=== PATIENT | female | born 1935 | race Caucasian/White ===

== ENCOUNTER 2016-11-24 12:06 | Emergency (ER) | payer OTHER ==
[~2016-11-24 12:06] MED LIST: ASPI81TA82 PO; CALCCHW25 PO; FISH100020 PO; GLUC250C5 PO; HYDR-2768 PO; LEVO50TA4 PO; LEVOPOW PO; LISI10 PO; METH4TAB6 PO; Meclizine Hcl PO; NORV5TAB PO; OMEP20TA39 PO; SIMV40TA OR; VITACAP31 PO
[2016-11-24 12:10] VITALS: BP 99/79; PULSE 66; RESP 20; O2SAT 96
[2016-11-24] MEDS ORDERED: SODIUM CHLOR 0.9% 1000 ML INJ 1,000 ML IV SCH (12:32)
[2016-11-24] MEDS ORDERED: SODIUM CHLORIDE 0.9% FLUSH 5 ML FLUSH IVF PRN (12:45)
[2016-11-24] MEDS ORDERED: MORPHINE SULFATE 4 MG/ML INJ IV ONE (12:45)
[2016-11-24] MEDS ORDERED: ceFAZolin INJ 1,000 MG in ceFAZolin 2 GM PREMIX 50 ML IV ONE (12:45)
[2016-11-24] MEDS ORDERED: ONDANSETRON HCL 4 MG/2 ML VIAL IVP ONE (12:45)
--- NOTE | 2016-11-24 12:46 | PD ---
HPI . Bilateral hand injuries Chief Complaint: Injury Time Seen by Provider: 12:27 Travel History International Travel<30 days: No Contact w/Intl Traveler<30days: No Traveled to known affect area: No History of Present Illness HPI History is obtained from the patient and her . They are bickering. The patient was reportedly using a table saw and inadvertently cut both hands. The was preparing to bring her to the hospital for evaluation of the injuries when she passed out and landed flat on her face. The patient does state that her tetanus is up-to-date. PFSH Past Medical History Arthritis: Yes Cancer: No Cardiovascular Problems: No High Cholesterol: Yes Diminished Hearing: No GERD: Yes Genitourinary: No Immune Disorder: No Implanted Vascular Access Dvce: Yes Musculoskeletal: Yes Neurologic: No Psychiatric: No Reproductive: No Respiratory: No Thyroid Disease: Yes (HYPO) Tetanus Vaccination: < 5 Years Influenza Vaccination: No ?: Not Past Surgical History Eye Surgery: Yes (aimee cataract removal) Joint Replacement: Yes (BILATERAL knee replaced.) Other Surgery: Yes (Aimee carpal tunnel) Social History Alcohol Use: Yes (OCC) Tobacco Use: No Substance Use: No Allergies-Medications (Allergen,Severity, Reaction): Coded Allergies: Tetracyclines (Verified Allergy, Severe, 06/04/14) Reported Meds & Prescriptions Reported Meds & Active Scripts Active Norvasc (Amlodipine Besylate) 5 Mg Tab 1 Tab PO DAILY 30 Days TAKE AT NOON Hm Omeprazole (Omeprazole) 20 Mg Tab 20 Mg PO BID 30 Days Medrol 4 Mg Tab (Methylprednisolone) 4 Mg Tab 8 Mg PO BID 30 Days TAKE WITH FOOD [Meclizine Hcl] 25 MG Tab 25 Mg PO Q6 30 Days Prinivil 10 Mg Tab (Lisinopril) 10 Mg Tab 10 Mg PO Q12 30 Days Reported Vitamin C & E (Vitamins C & E) Cap 1 Cap PO DAILY Fish Oil ([place]-3 Fatty Acids) 1,000 Mg Cap 1,000 Mg PO DAILY Glucosamine Chondroitin (Glucosamine-Chondroitin) 1 Cap Cap 1 Cap PO DAILY Calcium + D (Calcium Carbonate/Cholecalciferol) Chw 1 Tab PO DAILY Aspir-81 (Aspirin) 81 Mg Tab 81 Mg PO DAILY Levothyroxine 50 mcg (Levothyroxine Sodium) 50 Mcg Tab 1 Tab PO DAILY Hctz (Hydrochlorothiazide) 25 Mg Tab 25 Mg PO DAILY Simvastatin 40 Mg Tab 40 Mg OR HS Levothyroxine Sodium (Levothyroxine Sodium (Bulk)) Pow 0.75 Mcg PO DAILY Review of Systems Except as stated in HPI: all other systems reviewed are Neg Eyes: No: Blurred Vision HENT: Positive: Lightheadedness, Other (her teeth do not feel like they are fitting together normally. She is complaining that the upper central incisors seem to be pushed back.) Cardiovascular: Positive: Syncope, No: Chest Pain or Discomfort Respiratory: No: Shortness of Breath Skin: Positive Other (multiple hand lacerations. Facial abrasions.) Neurologic: Positive: Weakness, Dizziness, Syncope, No: Focal Abnormalities Physical Exam Narrative GENERAL: This is a healthy-appearing older woman with abrasions to her face. SKIN: Warm and dry. Facial abrasions. Lacerations to both hands. HEAD: Normocephalic. She has some tenderness across the bridge of the nose but no crepitus or deformity noted. EYES: Pupils equal and round. ENT: No nasal bleeding or discharge. Mucous membranes pink and moist. Her teeth seem to be intact. The jaw is nontender and she is able to move her jaw without any pain. NECK: Trachea midline. Neck is nontender. Full range of motion without pain. CARDIOVASCULAR: Regular rate and rhythm. Heart sounds are normal. RESPIRATORY: No accessory muscle use. Lungs are clear with full air movement throughout. GASTROINTESTINAL: Abdomen soft, non-tender, nondistended. MUSCULOSKELETAL: She has lacerations on both hands. She has lacerations involving the tips of many fingers. NEUROLOGICAL: Awake and alert. No obvious cranial nerve deficits. Motor grossly within normal limits. Normal speech. PSYCHIATRIC: Appropriate mood and affect; insight and judgment normal. Data Data Last Documented VS Vital Signs Date Time Temp Pulse Resp B/P Pulse Ox O2 Delivery O2 Flow Rate FiO2 11/24/16 12:55 177/75 11/24/16 12:10 66 20 96 Orders Basic Metabolic Panel (Bmp) (11/24/16 12:32) Complete Blood Count With Diff (11/24/16 12:32) Ct Brain W/O Iv Contrast(Rout) (11/24/16 12:32) Ct Facial Bones W/O Iv Cont (11/24/16 12:32) Electrocardiogram (11/24/16 12:32) Iv Access Insert/Monitor (11/24/16 12:32) Morphine Inj (Morphine Inj) (11/24/16 12:45) Ondansetron Inj (Zofran Inj) (11/24/16 12:45) Sodium Chlor 0.9% 1000 Ml Inj (Ns 1000 M (11/24/16 12:32) Sodium Chloride 0.9% Flush (Ns Flush) (11/24/16 12:45) Hand, Complete ([id number]) (11/24/16 12:32) Hand, Complete ([id number]) (11/24/16 12:32) Shoulder, Complete (>2vws) (11/24/16 12:48) Cefazolin Inj (Ancef Inj) (11/24/16 13:15) Troponin I (11/24/16 13:37) Bupivacaine Pf 0.5% Inj (Marcaine Pf 0.5 (11/24/16 13:45) Lidocaine 1% Inj (50 Ml) (Xylocaine 1% I (11/24/16 13:45) Labs Laboratory Tests Test 11/24/16 12:20 White Blood Count 11.6 TH/MM3 Red Blood Count 3.97 MIL/MM3 Hemoglobin 12.7 GM/DL Hematocrit 36.6 % Mean Corpuscular Volume 92.2 FL Mean Corpuscular Hemoglobin 31.9 PG Mean Corpuscular Hemoglobin 34.6 % Concent Red Cell Distribution Width 13.1 % Platelet Count 321 TH/MM3 Mean Platelet Volume 7.8 FL Neutrophils (%) (Auto) 80.6 % Lymphocytes (%) (Auto) 14.3 % Monocytes (%) (Auto) 4.7 % Eosinophils (%) (Auto) 0.3 % Basophils (%) (Auto) 0.1 % Neutrophils # (Auto) 9.4 TH/MM3 Lymphocytes # (Auto) 1.7 TH/MM3 Monocytes # (Auto) 0.5 TH/MM3 Eosinophils # (Auto) 0.0 TH/MM3 Basophils # (Auto) 0.0 TH/MM3 CBC Comment DIFF FINAL Differential Comment Sodium Level 137 MEQ/L Potassium Level 3.9 MEQ/L Chloride Level 97 MEQ/L Carbon Dioxide Level 27.8 MEQ/L Anion Gap 12 MEQ/L Blood Urea Nitrogen 22 MG/DL Creatinine 0.99 MG/DL Estimat Glomerular Filtration 54 ML/MIN Rate Random Glucose 107 MG/DL Calcium Level 8.9 MG/DL Troponin I LESS THAN 0.02 NG/ML MDM Medical Decision Making Medical Screen Exam Complete: Yes Emergency Medical Condition: Yes Interpretation(s) EKG shows a normal sinus rhythm with no acute ischemic change. Differential Diagnosis My differential diagnosis of syncope includes but is not limited to cardiac arrhythmia, hypovolemia, anemia, neurological catastrophe, vasovagal response. Differential diagnosis of extremity trauma includes but is not limited to fracture, sprain or strain, dislocation, contusion. Narrative Course Patient presents for the evaluation of 2 problems. The first is lacerations both hands from a table saw. The second is a syncopal event that occurred following the injury. I am seeing the patient with IRISH Mcgowan who will take care of her lacerations. The patient may require referral to a hand surgeon. CBC has an H&H of 12.7 and 36.6. Chemistries are unremarkable with the exception of an elevated BUN/creatinine of 22/0.99. Troponin is negative. All plain films have been independently viewed by me. Pertinent finding is that she has fractures of the distal phalanges of the index and middle fingers of the right hand. CT of her head and face is negative. Diagnosis Primary Impression: Fracture of phalanx of right index finger Qualified Code: S62.630B - Open displaced fracture of distal phalanx of right index finger, initial encounter Additional Impressions: Fracture of phalanx of right middle finger Qualified Code: S62.662B - Open nondisplaced fracture of distal phalanx of right middle finger, initial encounter Facial abrasion Qualified Code: S00.81XA - Facial abrasion, initial encounter Vasovagal syncope Referrals: Edi Trejo III, MD 2 days Patient Instructions: Finger Fracture (ED), General Instructions Additional Instructions: Keep the wounds clean and dressed for the next 2 days until you see the hand surgeon. Follow-up with the hand doctor in 2 days. Seek care sooner for redness, drainage, warmth, unusual pain. Med/Other Pt SpecificInfo: Prescription(s) given Scripts Oxycodone-Acetaminophen (Percocet)5-325 mg Tab1 Tab PO Q4H PRN (PAIN) #12 TAB Ref 0 Prov:Genie Kirby MD 11/24/16 Cephalexin (Keflex)500 Mg [id number] Mg PO Q8H #30 CAP Ref 0 Prov:Genie Kirby MD 11/24/16 Disposition: 01 DISCHARGE HOME Condition: Stable Genie Kirby MD Nov 24, 2016 12:46
[2016-11-24 12:55] VITALS: BP 177/75
[2016-11-24 12:55] LABS: AUTOMATED NEUTROPHIL # 9.4 TH/MM3 (1.8-7.7); BASOPHIL % 0.1 % (0.0-2.0); EOSINOPHIL % 0.3 % (0.0-4.0); HEMATOCRIT 36.6 % (35.0-46.0); HEMO FLAGS DIFF FINAL; LYMPH % 14.3 % (9.0-44.0); LYMPHOCYTE # 1.7 TH/MM3 (1.0-4.8); MEAN CELL VOLUME 92.2 FL (80.0-100.0); MEAN CORPUSCULAR HEMOGLOBIN 31.9 PG (27.0-34.0); MEAN CORPUSCULAR HGB CONC 34.6 % (32.0-36.0); MONO % 4.7 % (0.0-8.0); NEUT % 80.6 % (16.0-70.0); PLATELET COUNT 321 TH/MM3 (150-450); RED BLOOD COUNT 3.97 MIL/MM3 (4.00-5.30); RED CELL DISTRIBUTION WIDTH 13.1 % (11.6-17.2); WHITE BLOOD COUNT 11.6 TH/MM3 (4.0-11.0)
[2016-11-24 13:06] LABS: POTASSIUM 3.9 MEQ/L (3.5-5.1)
[2016-11-24 13:09] LABS: BICARBONATE 27.8 MEQ/L (21.0-32.0)
[2016-11-24] MEDS ORDERED: ceFAZolin 1,000 MG/NS 100 ML IV ONE ×2 (13:15)
--- NOTE | 2016-11-24 13:30 | RADHPO ---
EXAM DATE/TIME: 11/24/2016 12:54 [facility] COMPARISON: CHEST SINGLE AP, June 04, 2014, 6:41. INDICATIONS : Right shoulder pain from fall. MEDICAL HISTORY : None. SURGICAL HISTORY : None. ENCOUNTER: Initial ACUITY: 1 day PAIN SCORE: 10/10 LOCATION: Right shoulder. FINDINGS: Multiple view examination of the right shoulder demonstrates no evidence of fracture or dislocation. The glenohumeral and acromioclavicular joints are maintained. There is normal range of motion betwe en internal and external rotation. Bony mineralization is normal. CONCLUSION: No acute disease. Candace Jackson MD on November 24, 2016 at 13:29 Board Certified Radiologist. This report was verified electronically.
[2016-11-24] MEDS ORDERED: BUPIVACAINE HCL PF 0.5% 10 ML VIAL INFIL ONE (13:45)
[2016-11-24] MEDS ORDERED: LIDOCAINE HCL 1% 50 ML VIAL INFIL ONE (13:45)
--- NOTE | 2016-11-24 13:45 | RADHPO ---
EXAM DATE/TIME: 11/24/2016 13:21 [facility] COMPARISON: CT BRAIN W/O CONTRAST, June 04, 2014, 6:10. INDICATIONS : Syncope. Fall. Facial abrasion around mouth and nose. RADIATION DOSE: 64.29 CTDIvol (mGy) MEDICAL HISTORY : Hypothyroidism. SURGICAL HISTORY : Bilateral cataract surgery. ENCOUNTER: Initial ACUITY: 1 day PAIN SCALE: 8/10 LOCATION: cranial TECHNIQUE: Multiple contiguous axial images were obtained of the head. Using automated exposure control and adj ustment of the mA and/or kV according to patient size, radiation dose was kept as low as reasonably a chievable to obtain optimal diagnostic quality images. FINDINGS: CEREBRUM: The ventricles are normal for age. No evidence of midline shift, mass lesion, hemorrhage or acute in farction. No extra-axial fluid collections are seen. POSTERIOR FOSSA: The cerebellum and brainstem are intact. The 4th ventricle is midline. The cerebellopontine angle i s unremarkable. EXTRACRANIAL: The visualized portion of the orbits is intact. SKULL: The calvaria is intact. No evidence of skull fracture. CONCLUSION: No acute disease. Denny Trujillo MD on November 24, 2016 at 13:43 Board Certified Radiologist. This report was verified electronically.
--- NOTE | 2016-11-24 13:47 | RADHPO ---
EXAM DATE/TIME: 11/24/2016 13:05 [facility] COMPARISON: HAND RIGHT COMPLETE ([id number]), July 09, 2011, 16:03. INDICATIONS: Patient cut right hand with a table saw. MEDICAL HISTORY: None. SURGICAL HISTORY: Carpal tunnel. ENCOUNTER: Initial ACUITY: 1 day PAIN SCORE: 5/10 LOCATION: Right hand. FINDINGS: There is an acute comminuted fracture involving the right second distal phalanx. There is also acute fractures involving the right third distal phalanx in the region of the phalangeal tuft and at the b ase of the thumb involving the distal interphalangeal joint. There has been interval significant wor sening of arthritic changes involving the interphalangeal joints of the right hand as well as first c arpometacarpal joint compared to the previous examination in June 2011. CONCLUSION: 1. Acute comminuted fracture involving the right second distal phalanx and acute fractures involving the right third distal phalangeal tuft and base of the right third distal phalanx. 2. Interval worsening of arthritic changes involving the interphalangeal joints and the right first carpometacarpal joint compared to 07/09/11. The findings are suggestive of worsening osteoarthritis. Denny Trujillo MD on November 24, 2016 at 13:27 Board Certified Radiologist. This report was verified electronically.
--- NOTE | 2016-11-24 13:49 | RADHPO ---
EXAM DATE/TIME: 11/24/2016 13:08 [facility] COMPARISON: HAND LEFT COMPLETE ([id number]), July 09, 2011, 16:00. INDICATIONS: Patient cut left hand with a table saw. MEDICAL HISTORY: None. SURGICAL HISTORY: Carpal tunnel. ENCOUNTER: Initial ACUITY: 1 day PAIN SCORE: 5/10 LOCATION: Left hand. FINDINGS: There is no acute fracture or dislocation of the left hand. There has been interval worsening of the arthritic changes involving the interphalangeal joints and first carpometacarpal joint of the left h and consistent with worsening osteoarthritis. CONCLUSION: 1. No acute fracture or dislocation of the left hand. 2. Interval worsening arthritic changes involving the interphalangeal joints and first carpometacarp al joint of the left hand suggesting worsening osteoarthritis. Clinical correlation is recommended. Denny Trujillo MD on November 24, 2016 at 13:30 Board Certified Radiologist. This report was verified electronically.
--- NOTE | 2016-11-24 13:52 | RADHPO ---
EXAM DATE/TIME: 11/24/2016 13:21 [facility] COMPARISON: No previous studies available for comparison. INDICATIONS : Syncope. Fall. Facial abrasion around mouth and nose. RADIATION DOSE: 34.93 CTDIvol (mGy) MEDICAL HISTORY : Hypothyroidism. SURGICAL HISTORY : Bilateral cataract surgery. ENCOUNTER: Initial ACUITY: 1 day PAIN SCORE: 8/10 LOCATION: facial TECHNIQUE: Volumetric scanning of the facial bones was performed. Using automated exposure control and adjustme nt of the mA and/or kV according to patient size, radiation dose was kept as low as reasonably achiev able to obtain optimal diagnostic quality images. FINDINGS: ORBITS: The orbital and infraorbital osseous structures are intact. The retroconal structures have a normal configuration. No radiopaque foreign bodies are seen. NASAL BONE: The nasal bone and maxillary spine are intact ZYGOMATIC ARCHES: Symmetric without evidence of fracture. SINUSES: The maxillary, ethmoid and frontal sinuses are intact. No air-fluid levels seen. NASAL CAVITY: The nasal septum is intact and midline. Left-sided reed bullosa is noted. The lacrimal ducts are i ntact. SOFT TISSUES: No radiopaque foreign bodies seen. No soft-tissue swelling is seen. INTRACRANIAL: No intracranial air seen. CRIBIFORM PLATE: Grossly intact. CONCLUSION: 1. No acute facial bone fracture. 2. Left-sided reed bullosa. Denny Trujillo MD on November 24, 2016 at 13:49 Board Certified Radiologist. This report was verified electronically.
[2016-11-24] MEDS ORDERED: CEPH-460 PO (14:24)
[2016-11-24] MEDS ORDERED: PERC5TAB12 PO (14:24)
[2016-11-24] MEDS ORDERED: SIMV40TA PO (15:02)
[2016-11-24] MEDS ORDERED: LEVO50TA4 PO (15:02)
[2016-11-24] MEDS ORDERED: HYDR25TA5 PO (15:02)
--- NOTE | 2016-11-24 16:06 | PD ---
Physical Exam Time Seen by Provider: 15:00 Narrative I was asked by Dr. Kirby to repair a laceration on this patient. Please see her note for further details. Data Data Last Documented VS Vital Signs Date Time Temp Pulse Resp B/P Pulse Ox O2 Delivery O2 Flow Rate FiO2 11/24/16 12:55 177/75 11/24/16 12:10 66 20 96 Orders Basic Metabolic Panel (Bmp) (11/24/16 12:32) Complete Blood Count With Diff (11/24/16 12:32) Ct Brain W/O Iv Contrast(Rout) (11/24/16 12:32) Ct Facial Bones W/O Iv Cont (11/24/16 12:32) Electrocardiogram (11/24/16 12:32) Iv Access Insert/Monitor (11/24/16 12:32) Morphine Inj (Morphine Inj) (11/24/16 12:45) Ondansetron Inj (Zofran Inj) (11/24/16 12:45) Sodium Chlor 0.9% 1000 Ml Inj (Ns 1000 M (11/24/16 12:32) Sodium Chloride 0.9% Flush (Ns Flush) (11/24/16 12:45) Hand, Complete (Fiz2ovx) (11/24/16 12:32) Hand, Complete ([id number]) (11/24/16 12:32) Shoulder, Complete (>2vws) (11/24/16 12:48) Cefazolin Inj (Ancef Inj) (11/24/16 13:15) Troponin I (11/24/16 13:37) Bupivacaine Pf 0.5% Inj (Marcaine Pf 0.5 (11/24/16 13:45) Lidocaine 1% Inj (50 Ml) (Xylocaine 1% I (11/24/16 13:45) Labs Laboratory Tests Test 11/24/16 12:20 White Blood Count 11.6 TH/MM3 Red Blood Count 3.97 MIL/MM3 Hemoglobin 12.7 GM/DL Hematocrit 36.6 % Mean Corpuscular Volume 92.2 FL Mean Corpuscular Hemoglobin 31.9 PG Mean Corpuscular Hemoglobin 34.6 % Concent Red Cell Distribution Width 13.1 % Platelet Count 321 TH/MM3 Mean Platelet Volume 7.8 FL Neutrophils (%) (Auto) 80.6 % Lymphocytes (%) (Auto) 14.3 % Monocytes (%) (Auto) 4.7 % Eosinophils (%) (Auto) 0.3 % Basophils (%) (Auto) 0.1 % Neutrophils # (Auto) 9.4 TH/MM3 Lymphocytes # (Auto) 1.7 TH/MM3 Monocytes # (Auto) 0.5 TH/MM3 Eosinophils # (Auto) 0.0 TH/MM3 Basophils # (Auto) 0.0 TH/MM3 CBC Comment DIFF FINAL Differential Comment Sodium Level 137 MEQ/L Potassium Level 3.9 MEQ/L Chloride Level 97 MEQ/L Carbon Dioxide Level 27.8 MEQ/L Anion Gap 12 MEQ/L Blood Urea Nitrogen 22 MG/DL Creatinine 0.99 MG/DL Estimat Glomerular Filtration 54 ML/MIN Rate Random Glucose 107 MG/DL Calcium Level 8.9 MG/DL Troponin I LESS THAN 0.02 NG/ML MDM Medical Record Reviewed: Yes Supervised Visit with CATHERINE: Yes Procedures Procedure Narrative LACERATION LOCATION: Left interdigital web space of the first and second digit LENGTH: 3 cm NUMBER OF STITCHES/RADHA: 8 simple interrupted REPAIR: The area of the laceration was prepped with Betadine and sterilely draped. The laceration was infiltrated with 1% lidocaine. The wound was copiously irrigated and explored without evidence of foreign body, tendon injury or neurovascular injury. The wound was closed using 5-0 Prolene. This was a single layer repair. A sterile dressing was applied. The patient was advised to keep the dressing clean and dry. Patient tolerated the procedure well. LACERATION LOCATION: Right thumb pulp space LENGTH: 2 cm NUMBER OF STITCHES/RADHA: 4 simple interrupted, 2 buried REPAIR: The area of the laceration was prepped with Betadine and sterilely draped. Digital block of the thumb was performed using 1% lidocaine and 0.5% bupivacaine. The wound was copiously irrigated and explored without evidence of foreign body, tendon injury or neurovascular injury. The wound was closed using 5-0 Prolene and 5-0 Vicryl. This was a double layer repair. A sterile dressing was applied. The patient was advised to keep the dressing clean and dry. Patient tolerated the procedure well. Diagnosis Primary Impression: Fracture of phalanx of right index finger Qualified Code: S62.630B - Open displaced fracture of distal phalanx of right index finger, initial encounter Additional Impressions: Fracture of phalanx of right middle finger Qualified Code: S62.662B - Open nondisplaced fracture of distal phalanx of right middle finger, initial encounter Facial abrasion Qualified Code: S00.81XA - Facial abrasion, initial encounter Vasovagal syncope Referrals: Edi Trejo III, MD 2 days Patient Instructions: General Instructions, Finger Fracture (ED) Departure Forms: Tests/Procedures Additional Instruction: Keep the wounds clean and dressed for the next 2 days until you see the hand surgeon. Follow-up with the hand doctor in 2 days. Seek care sooner for redness, drainage, warmth, unusual pain. Scripts Oxycodone-Acetaminophen (Percocet)5-325 mg Tab1 Tab PO Q4H PRN (PAIN) #12 TAB Ref 0 Prov:Genie Kirby MD 11/24/16 Cephalexin (Keflex)500 Mg [id number] Mg PO Q8H #30 CAP Ref 0 Prov:Genie Kirby MD 11/24/16 Disposition: 01 DISCHARGE HOME Condition: Stable Isela Carballo Nov 24, 2016 16:06
[2016-11-24 18:40] VITALS: BP 128/77
--- NOTE | 2016-11-25 22:46 | EKG ---
Date Performed: 11/24/2016 Time Performed: 13:28:10 PTAGE: 81 years EKG: Sinus rhythm rSr'(V1) - probable normal variant Normal ECG PREVIOUS TRACING : 06/04/2014 11.31 DOCTOR: Henrry Jara Interpretating Date/Time 11/25/2016 22:42:54
== END 2016-11-24 18:45 | disposition home or self-care (01) ==
LOC: PHEFT 12:06
DX: S62.630B Displaced fracture of distal phalanx of right index finger, initial encounter for open fracture (principal); S62.662B Nondisplaced fracture of distal phalanx of right middle finger, initial encounter for open fracture; S00.81XA Abrasion of other part of head, initial encounter; S61.412A Laceration without foreign body of left hand, initial encounter; S61.411A Laceration without foreign body of right hand, initial encounter; R55 Syncope and collapse; M19.90 Unspecified osteoarthritis, unspecified site; E78.00 Pure hypercholesterolemia, unspecified; K21.9 Gastro-esophageal reflux disease without esophagitis; E03.9 Hypothyroidism, unspecified; W29.8XXA Contact with other powered hand tools and household machinery, initial encounter; Y99.8 Other external cause status
CPT/HCPCS: 12002; 12041; 70450; 70486; 73030; 73130; 80048; 84484; 85025; 93005; 96365; 96375; 99284; J0690; J2270; J2405; J7030

== ENCOUNTER 2016-11-26 11:27 | Emergency (ER) | payer OTHER ==
[~2016-11-26] VITALS: Ht 147.3 cm; Wt 55.0 kg
[~2016-11-26 11:27] MED LIST changes: +CEPH-460 PO; +HYDR25TA5 PO; +PERC5TAB12 PO; +SIMV40TA PO
[2016-11-26 11:29] VITALS: BP 149/59; PULSE 60; RESP 18; TEMP 97.8; O2SAT 100
[2016-11-26] MEDS ORDERED: ACET325T PO (11:56)
[2016-11-26] MEDS ORDERED: MECL25CH CHEW (11:56)
[2016-11-26] MEDS ORDERED: LISI10TA PO (11:56)
--- NOTE | 2016-11-26 12:01 | PD ---
HPI Chief Complaint: Wound/Suture/Staple Re-Check Time Seen by Provider: 11:57 Travel History International Travel<30 days: No Contact w/Intl Traveler<30days: No Traveled to known affect area: No History of Present Illness HPI Patient is a 81-year-old female presenting to days after table saw injury to of hands. Further reports she had a laceration to the left thumb and second digit of the left hand and lacerations and fractures to the second and third distal phalanges of the right hand. Patient was given Ancef here and pressures for Keflex and pain medication. She states she still has aching and throbbing pain in her right hand but no worsening. She left the bandage is intact and is here because her her called her PCP and orthopedist and have not been able to get the referral to a hand specialist. She denies fever. PFSH Past Medical History Arthritis: Yes Cancer: No Cardiovascular Problems: No High Cholesterol: Yes Diminished Hearing: No GERD: Yes Genitourinary: No Hypertension: Yes Immune Disorder: No Implanted Vascular Access Dvce: Yes Medical other: Yes (vertigo) Musculoskeletal: Yes Neurologic: No Psychiatric: No Reproductive: No Respiratory: No Thyroid Disease: Yes (HYPO) Tetanus Vaccination: < 5 Years Influenza Vaccination: No ?: Not Past Surgical History Eye Surgery: Yes (saeid cataract sx) Joint Replacement: Yes (BILATERAL knee replaced) Other Surgery: Yes (Saeid carpal tunnel) Social History Alcohol Use: Yes (wine, occasionally) Tobacco Use: No (quit 1960s) Substance Use: No Allergies-Medications (Allergen,Severity, Reaction): Coded Allergies: Tetracyclines (Verified Allergy, Severe, 11/26/16) Reported Meds & Prescriptions Reported Meds & Active Scripts Active Percocet (Oxycodone-Acetaminophen) 5-325 mg Tab 1 Tab PO Q4H PRN Keflex (Cephalexin) 500 Mg Cap 500 Mg PO Q8H Reported Acetaminophen 325 Mg Tab 650 Mg PO Q4-6H PRN Meclizine (Meclizine HCl) 25 Mg Chew 25 Mg CHEW DAILY Lisinopril-Hctz 10-12.5 Mg Tab 1 Tab PO DAILY Levothyroxine (Levothyroxine Sodium) 50 Mcg Tab 75 Mcg PO DAILY Simvastatin 40 Mg Tab 40 Mg PO HS Review of Systems General / Constitutional: No: Fever, Chills Skin: Positive Other (see the history of present illness) Hematologic/Lymphatic: No: Lymph Node Enlargement Physical Exam Narrative GENERAL: Well-developed and well-nourished adult female in no acute distress. SKIN: Right hand has repaired lacerations to the distal aspect of the thumb through the fourth digit. Sutures are in place without dehiscence or signs of infection. Well-healing laceration to the webspace between the thumb and second digit of the left hand. No evidence of dehiscence or infection. Multiple well-healing abrasions to the face. Good turgor without tenting. HEAD: Normocephalic and atraumatic. EYES: PERRL bilaterally, 5mm. EOMI bilaterally. No injection or icterus present. No proptosis. Lids without edema or erythema. NECK: Supple, no midline tenderness, crepitus or step-offs. Trachea midline, no JVD. No cervical or facial lymphadenopathy. CARDIOVASCULAR: Regular rate and rhythm without murmurs, rubs, clicks or gallops. Radial pulses 2+ bilaterally. RESPIRATORY: Clear to auscultation bilaterally with symmetrical rise and fall, no distress or use of accessory muscles. MUSCULOSKELETAL: Distal avulsion and nailbed injuries to the second through fourth fingers of the right hand with sutures in place, no signs of infection or dehiscence. Second third digits are held in flexion distally but limited range of motion. No gait disturbances. Patient freely moving all four extremities spontaneously. Extremities without clubbing or cyanosis. NEUROLOGIC: CN II-XII grossly intact. Awake and alert. Motor grossly within normal limits. Normal speech. PSYCHIATRIC: Appropriate mood and affect; insight and judgment normal. Data Data Last Documented VS Vital Signs Date Time Temp Pulse Resp B/P Pulse Ox O2 Delivery O2 Flow Rate FiO2 11/26/16 11:29 97.8 60 18 149/59 100 MDM Medical Decision Making Medical Screen Exam Complete: Yes Emergency Medical Condition: Yes Differential Diagnosis Finger avulsion injury versus finger fracture versus wound dehiscence versus wound infection Narrative Course Patient is a 81-year-old female who is afebrile, nontoxic and has no systemic complaints presenting for follow-up from laceration, finger fractures and avulsion injuries from a table saw 2 days prior. She has been taking the Keflex. She has not seen anyone in follow-up because there is some confusion with the directions of her speaking with her primary or orthopedist rather than calling Dr. Trejo. There is no sign of infection and the sutures are all in place. Reduced range of motion secondary third digits of the right hand which have comminuted distal phalanx fractures. I spoke with Dr. Jaymie Arnold who recommended the patient see her today at her office at 3:30 PM. This was provided to the patient who is agreeable. The wounds were rewrapped and she was discharged to follow-up this afternoon.See discharge paperwork for further instructions. The plan was discussed with the patient who acknowledged their understanding and agreement. Reinforced the follow-up with primary care is critically important. Patient instructed on emergent conditions that should prompt return to ED. Diagnosis Primary Impression: Fracture of phalanx of right middle finger Qualified Code: S62.632D - Open displaced fracture of distal phalanx of right middle finger with routine healing, subsequent encounter Additional Impressions: Fracture of phalanx of right index finger Qualified Code: S62.630D - Open displaced fracture of distal phalanx of right index finger with routine healing, subsequent encounter Facial abrasion Qualified Code: S00.81XD - Facial abrasion, subsequent encounter Referrals: Jaymie Arnold MD Patient Instructions: General Instructions Additional Instructions: Follow-up with Dr. Jaymie Arnold today at 3:30 PM as discussed Return to the ED for any acute worsening of symptoms in the interim Disposition: 01 DISCHARGE HOME Condition: Stable Paulo Sevilla III Nov 26, 2016 12:01
== END 2016-11-26 13:24 | disposition home or self-care (01) ==
LOC: PHEFT 11:27
DX: S62.630D Displaced fracture of distal phalanx of right index finger, subsequent encounter for fracture with routine healing (principal); S62.662D Nondisplaced fracture of distal phalanx of right middle finger, subsequent encounter for fracture with routine healing; S00.81XD Abrasion of other part of head, subsequent encounter; I10 Essential (primary) hypertension; K21.9 Gastro-esophageal reflux disease without esophagitis; E03.9 Hypothyroidism, unspecified; E78.00 Pure hypercholesterolemia, unspecified; W29.8XXD Contact with other powered hand tools and household machinery, subsequent encounter
CPT/HCPCS: 99283

== ENCOUNTER 2017-01-22 04:44 | Observation (INO) | payer OTHER ==
[~2017-01-22] VITALS: Ht 147.3 cm; Wt 57.0 kg
[2017-01-22] VITALS (11 sets, daily range): BP systolic 118–162; BP diastolic 53–98; PULSE 58–67; RESP 16–20; TEMP 97–99.7; O2SAT 94–98
[~2017-01-22 04:44] MED LIST changes: +ACET325T PO; -ASPI81TA82 PO; -CALCCHW25 PO; -FISH100020 PO; -GLUC250C5 PO; -HYDR-2768 PO; -HYDR25TA5 PO; -LEVOPOW PO; -LISI10 PO; +LISI10TA PO; +MECL25CH CHEW; -METH4TAB6 PO; -Meclizine Hcl PO; -NORV5TAB PO; -OMEP20TA39 PO; -SIMV40TA OR; -VITACAP31 PO
[2017-01-22] MEDS ORDERED: OMEP20TA PO (05:08)
[2017-01-22] MEDS ORDERED: METH4TAB6 PO (05:09)
[2017-01-22] MEDS ORDERED: FLUT1SPR5 EACH NARE (05:10)
[2017-01-22] MEDS ORDERED: CIPR250T52 PO (05:10)
[2017-01-22] MEDS ORDERED: SODIUM CHLOR 0.9% 1000 ML INJ 1,000 ML IV ONE (05:12)
[2017-01-22] MEDS ORDERED: cefTRIAXone INJ 1,000 MG in SODIUM CHLORIDE 0.9% INJ 100 ML IV ONE (05:15)
[2017-01-22] MEDS ORDERED: SODIUM CHLORIDE 0.9% FLUSH 5 ML FLUSH IVF PRN ×2 (05:15→07:00)
--- NOTE | 2017-01-22 05:28 | PD ---
HPI Chief Complaint: General Weakness Time Seen by Provider: 05:12 Travel History International Travel<30 days: No Contact w/Intl Traveler<30days: No Traveled to known affect area: No History of Present Illness HPI 81-year-old female presents to the emergency department by EMS transportation for evaluation of generalized weakness and near syncopal/syncopal episode this morning just prior to arrival to the emergency department. Patient's spouse is at the bedside and along with the patient provides history. Patient is in the process of being evaluated for memory disturbance by her neurologist Dr. Zelaya with concern for dementia. Patient recently underwent MRI and EEG studies. Patient was also seen recently by her primary care provider for generalized weakness and was identified to have urinary tract infection 01/21/17 and was started on ciprofloxacin. Patient has taken a one-time dose of antibiotic. Patient reportedly had temperature elevation at the doctor' s office 100+ degrees Fahrenheit. reports that he was up out of bed with the patient who had to urinate and on her way to the bathroom patient became very weak and the reports she had loss of consciousness and the patient denies having loss of consciousness but reports generalized weakness. Patient's legs have been reportedly giving out on her. Patient did have an episode of vomiting at home. No report of headache no change in mentation visual disturbance earache sinus pressure drainage has had a sore throat for 2 days no neck pain or stiffness no chest pain or shortness of breath has had cough and congestion, no nausea poor appetite and 1 episode of vomiting prior to arrival to the emergency department no abdominal pain no diarrhea. No dysuria frequency or urgency no report of flank pain. As mentioned above the diagnosis of urinary tract infection. No recent skin rash joint pain or swelling. Patient with history of hypertension and dyslipidemia. Patient is not diabetic. Patient does have history of hypothyroidism. [facility] Past Medical History Narrative Medical Arthritis dyslipidemia hypertension hypothyroidism seasonal/vomiting allergies UTI memory disturbance/dementia bilateral knee replacement carpal tunnel repair alcohol use nursing notes reviewed Arthritis: Yes Cancer: No Cardiovascular Problems: No High Cholesterol: Yes Diminished Hearing: No GERD: Yes Genitourinary: No Hypertension: Yes Immune Disorder: No Implanted Vascular Access Dvce: Yes Musculoskeletal: Yes Neurologic: No Psychiatric: No Reproductive: No Respiratory: No Thyroid Disease: Yes (HYPO) ?: Not Past Surgical History Eye Surgery: Yes (aimee cataract sx) Joint Replacement: Yes (BILATERAL knee replaced) Other Surgery: Yes (Aimee carpal tunnel) Social History Alcohol Use: Yes (wine, occasionally) Tobacco Use: No (quit 1960s) Substance Use: No Allergies-Medications (Allergen,Severity, Reaction): Coded Allergies: Tetracyclines (Verified Allergy, Severe, 01/22/17) Reported Meds & Prescriptions Reported Meds & Active Scripts Active Reported Cipro (Ciprofloxacin HCl) 250 Mg Tab 250 Mg PO BID Flonase Nasal [place] (Fluticasone Nasal [place]) 50 Mcg/Act [place] 50 Mcg EACH NARE BID Methylprednisolone 4 Mg Tab 4 Mg PO DAILY Omeprazole 20 Mg Tab 20 Mg PO DAILY Meclizine (Meclizine HCl) 25 Mg Chew 25 Mg CHEW DAILY Lisinopril-Hctz 10-12.5 Mg Tab 1 Tab PO DAILY Levothyroxine (Levothyroxine Sodium) 50 Mcg Tab 75 Mcg PO DAILY Simvastatin 40 Mg Tab 40 Mg PO HS Review of Systems Except as stated in HPI: all other systems reviewed are Neg General / Constitutional: Positive: Fever (subjective), Chills Eyes: No: Visual changes HENT: Positive: Lightheadedness, Sore Throat, Congestion, No: Headaches Cardiovascular: Positive: Syncope (near syncope), No: Chest Pain or Discomfort , Palpitations, Diaphoresis Respiratory: Positive: Cough, No: Shortness of Breath, Wheezing Gastrointestinal: Positive: Vomiting (x1), No: Nausea, Diarrhea, Abdominal Pain Genitourinary: No: Dysuria, Flank Pain Musculoskeletal: Positive: Weakness, No: Myalgias, Arthralgias Neurologic: Positive: Weakness, Dizziness, Syncope (near syncope), No: Headache, Change in Mentation, Slurred Speech Psychiatric: No: Anxiety Endocrine: No: Heat Intolerance Hematologic/Lymphatic: No: Easy Bruising Physical Exam Narrative GENERAL: Well developed well-nourished female in no acute distress no respiratory distress SKIN: Warm and dry. HEAD: Atraumatic. Normocephalic. EYES: Pupils equal and round. Extra ocular muscles intact. No scleral icterus. No injection or drainage. ENT: No nasal bleeding or discharge. Mucous membranes pink and moist. Posterior pharynx no erythema or injection or exudate of change airway is patent. NECK: Trachea midline. No JVD. Supple no meningismus no nuchal rigidity. CARDIOVASCULAR: Regular rate and rhythm. RESPIRATORY: No accessory muscle use. Clear to auscultation. Breath sounds equal bilaterally. GASTROINTESTINAL: Abdomen soft, non-tender, nondistended. Hepatic and splenic margins not palpable. MUSCULOSKELETAL: Extremities without clubbing, cyanosis, or edema. No obvious deformities. Radial and dorsalis pedis pulses 2+ to palpation bilaterally. NEUROLOGICAL: Awake and alert. No obvious cranial nerve deficits. Motor grossly within normal limits. Five out of 5 muscle strength in the arms and legs. No limb ataxia. No pronator drift. Sensory exam intact. Normal speech. PSYCHIATRIC: Appropriate mood and affect; insight and judgment normal. Data Data Last Documented VS Vital Signs Date Time Temp Pulse Resp B/P Pulse Ox O2 Delivery O2 Flow Rate FiO2 01/22/17 06:18 59 132/56 98 Room Air 01/22/17 05:15 20 01/22/17 05:11 99.7 Orders Electrocardiogram (01/22/17 05:12) Complete Blood Count With Diff (01/22/17 05:12) Comprehensive Metabolic Panel (01/22/17 05:12) Magnesium (Mg) (01/22/17 05:12) Ckmb (Isoenzyme) Profile (01/22/17 05:12) Troponin I (01/22/17 05:12) Act Partial Throm Time (Ptt) (01/22/17 05:12) Prothrombin Time / Inr (Pt) (01/22/17 05:12) Urinalysis - C+S If Indicated (01/22/17 05:12) Chest, Single Ap (01/22/17 05:12) Ct Brain W/O Iv Contrast(Rout) (01/22/17 05:12) Blood Glucose (01/22/17 05:12) Ecg Monitoring (01/22/17 05:12) Iv Access Insert/Monitor (01/22/17 05:12) Oximetry (01/22/17 05:12) Sodium Chloride 0.9% Flush (Ns Flush) (01/22/17 05:15) Sodium Chlor 0.9% 1000 Ml Inj (Ns 1000 M (01/22/17 05:12) Ceftriaxone Inj (Rocephin Inj) (01/22/17 05:15) Blood Culture (01/22/17 05:12) Lactic Acid Sepsis Protocol (01/22/17 05:12) Influenzae A/B Antigen (01/22/17 05:28) Thyroid Stimulating Hormone (01/22/17 05:28) Potassium Chloride (Kcl) (01/22/17 06:30) Place In Observation (01/22/17 ) Vital Signs (Adult) Q4H (01/22/17 06:54) Circular Ripsaw Operator / Telemetry .CONTINUOUS (01/22/17 06:54) Intake + Output TIM.QSHIFT (01/22/17 06:54) Diet Heart Healthy (01/22/17 Breakfast) Sodium Chlor 0.9% 1000 Ml Inj (Ns 1000 M (01/22/17 06:54) Sodium Chloride 0.9% Flush (Ns Flush) (01/22/17 07:00) Sodium Chloride 0.9% Flush (Ns Flush) (01/22/17 09:00) Ondansetron Inj (Zofran Inj) (01/22/17 07:00) Bisacodyl Supp (Dulcolax Supp) (01/22/17 07:00) Comprehensive Metabolic Panel (01/23/17 06:00) Complete Blood Count With Diff (01/23/17 06:00) Scd Bilateral/Knee High TIM.BID (01/22/17 06:54) Chris Bilateral/Knee High TIM.QSHIFT (01/22/17 06:54) Acetaminophen (Tylenol) (01/22/17 07:00) Labs Laboratory Tests Test 01/22/17 05:30 White Blood Count 6.5 TH/MM3 Red Blood Count 3.73 MIL/MM3 Hemoglobin 11.6 GM/DL Hematocrit 34.5 % Mean Corpuscular Volume 92.4 FL Mean Corpuscular Hemoglobin 31.1 PG Mean Corpuscular Hemoglobin 33.7 % Concent Red Cell Distribution Width 12.4 % Platelet Count 198 TH/MM3 Mean Platelet Volume 8.4 FL Neutrophils (%) (Auto) 79.4 % Lymphocytes (%) (Auto) 9.3 % Monocytes (%) (Auto) 11.0 % Eosinophils (%) (Auto) 0.0 % Basophils (%) (Auto) 0.3 % Neutrophils # (Auto) 5.2 TH/MM3 Lymphocytes # (Auto) 0.6 TH/MM3 Monocytes # (Auto) 0.7 TH/MM3 Eosinophils # (Auto) 0.0 TH/MM3 Basophils # (Auto) 0.0 TH/MM3 CBC Comment DIFF FINAL Differential Comment Prothrombin Time 11.1 SEC Prothromb Time International 1.0 RATIO Ratio Activated Partial 25.3 SEC Thromboplast Time Sodium Level 129 MEQ/L Potassium Level 3.1 MEQ/L Chloride Level 90 MEQ/L Carbon Dioxide Level 29.5 MEQ/L Anion Gap 10 MEQ/L Blood Urea Nitrogen 13 MG/DL Creatinine 0.79 MG/DL Estimat Glomerular Filtration 70 ML/MIN Rate Random Glucose 109 MG/DL Lactic Acid Level 1.1 mmol/L Calcium Level 8.0 MG/DL Magnesium Level 1.8 MG/DL Total Bilirubin 0.4 MG/DL Aspartate Amino Transf 28 U/L (AST/SGOT) Alanine Aminotransferase 20 U/L (ALT/SGPT) Alkaline Phosphatase 47 U/L Total Creatine Kinase 95 U/L Troponin I LESS THAN 0.02 NG/ML Total Protein 6.7 GM/DL Albumin 3.2 GM/DL Thyroid Stimulating Hormone 0.679 uIU/ML [address] [place] [address] Medical Decision Making Medical Screen Exam Complete: Yes Emergency Medical Condition: Yes Medical Record Reviewed: Yes Interpretation(s) EKG: Sinus bradycardia rate [address] elevation or injury pattern change or ectopy noted Last Impressions Head CT 01/22/17511 Signed Impressions: Service Date/Time: Sunday, January 22, 2017 05:35 - CONCLUSION: Age- appropriate atrophy. No acute findings. Mane Plunkett MD Chest X-Ray 01/22/17511 Signed Impressions: Service Date/Time: Sunday, January 22, 2017 05:34 - CONCLUSION: The lungs are clear. Mane Plunkett MD CBC & BMP Diagram 01/22/17 05:30 Vital Signs Date Time Temp Pulse Resp B/P Pulse Ox O2 Delivery O2 Flow Rate FiO2 01/22/17 06:18 59 132/56 98 Room Air 01/22/17 05:23 94 Room Air 01/22/17 05:15 60 20 94 01/22/17 05:11 99.7 60 20 162/72 94 Lactic acid: 1.1, not elevated CK: 95, not elevated; troponin I: Less than 0.02, not elevated TSH: 0.679 within normal range Coagulation studies within normal range Differential Diagnosis Generalized weakness, sepsis, UTI, pneumonia, influenza, arrhythmia, electrolyte disturbance, ACS, AL, TIA, CVA, thyroid dysfunction; also to consider below suspicion for PE no chest pain no shortness of breath no tachycardia symptoms have been present with generalized weakness for several days patient's near-syncopal/syncopal episode occurred upon standing/up out of bed after sleeping to go the bathroom possible transient hypotension versus vasovagal etiology. Narrative Course IV access obtained specimens collected and sent for resulting Patient administered normal saline 1 L bolus and Rocephin 1 g IV piggyback as a presumptive antibiotic coverage for diagnosis of UTI yesterday after obtaining blood cultures CBC is automated differential total white cell count within normal limits however automated differential identifies a left shift 79% neutrophils EKG shows no acute injury pattern and cardiac enzymes first set are within normal range Patient shows normal range TSH with history of hypothyroidism CT brain noncontrast reveals no acute abnormality; chest x-ray reveals no lobar infiltrate effusion or vascular congestion or pneumothorax Urinalysis remains pending Patient's case discussed with on-call medicine physician for admission for syncope/near syncope with hyponatremia recent diagnosis of UTI as of yesterday by primary care provider's office with dose of Cipro and for generalized weakness. Per Dr. Martinez will admit as observation. Critical Care Narrative Aggregate critical care time was 40 minutes. Time to perform other separately billable procedures was not included in the critical care time. My time did not include minutes spent treating any other patients simultaneously or on activities that did not directly contribute to the patient's treatment. The services I provided to this patient were to treat and/or prevent clinically significant deterioration that could result in: Sepsis dysrhythmia coma I provided critical care services requiring my management, as noted below: Chart data review, documentation time, medication orders and management, vital sign assessments/reviewing monitor data, ordering and reviewing lab tests, ordering and interpreting/reviewing x-rays and diagnostic studies, care of the patient and discussion of the patient with the admitting physicians. Physician Communication Physician Communication discussed with Dr Martinez --[facility] service OBS admission Diagnosis Primary Impression: Syncope Qualified Code: R55 - Syncope, unspecified syncope type Additional Impressions: UTI (urinary tract infection) Hyponatremia Admitting Information Admitting Physician Requests: Observation Annie Hawkins MD Jan 22, 2017 05:28
[2017-01-22 05:48] LABS: AUTOMATED NEUTROPHIL # 5.2 TH/MM3 (1.8-7.7); BASOPHIL % 0.3 % (0.0-2.0); HEMATOCRIT 34.5 % (35.0-46.0); HEMO FLAGS DIFF FINAL; LYMPH % 9.3 % (9.0-44.0); LYMPHOCYTE # 0.6 TH/MM3 (1.0-4.8); MEAN CELL VOLUME 92.4 FL (80.0-100.0); MEAN CORPUSCULAR HEMOGLOBIN 31.1 PG (27.0-34.0); MEAN CORPUSCULAR HGB CONC 33.7 % (32.0-36.0); NEUT % 79.4 % (16.0-70.0); PLATELET COUNT 198 TH/MM3 (150-450); RED BLOOD COUNT 3.73 MIL/MM3 (4.00-5.30); RED CELL DISTRIBUTION WIDTH 12.4 % (11.6-17.2); WHITE BLOOD COUNT 6.5 TH/MM3 (4.0-11.0)
[2017-01-22 05:56] LABS: CHLORIDE 90 MEQ/L (98-107); SODIUM (NA) 129 MEQ/L (136-145)
[2017-01-22 05:58] LABS: POTASSIUM 3.1 MEQ/L (3.5-5.1)
[2017-01-22 06:00] LABS: ANION GAP 10 MEQ/L (5-15); BICARBONATE 29.5 MEQ/L (21.0-32.0); BLOOD UREA NITROGEN 13 MG/DL (7-18); MAGNESIUM 1.8 MG/DL (1.5-2.5)
[2017-01-22 06:01] LABS: APTT (PATIENT) 25.3 SEC (24.3-30.1); PROTHROMBIN TIME - PATIENT 11.1 SEC (9.8-11.6)
[2017-01-22 06:03] LABS: ALT (GPT) 20 U/L (10-53); AST (GOT) 28 U/L (15-37); GLOMERULAR FILTRATION RATE 70 ML/MIN (>89)
[2017-01-22 06:05] LABS: TOTAL BILIRUBIN ADULT 0.4 MG/DL (0.2-1.0)
[2017-01-22 06:06] LABS: ALKALINE PHOSPHATASE 47 U/L (45-117)
[2017-01-22 06:08] LABS: CREATINE KINASE 95 U/L (26-192)
--- NOTE | 2017-01-22 06:21 | RADHPO ---
EXAM DATE/TIME: 01/22/2017 05:35 [facility] COMPARISON: CT BRAIN W/O CONTRAST, November 24, 2016, 13:21. INDICATIONS : Dizziness. Weakness. Confusion. RADIATION DOSE: 56.87 CTDIvol (mGy) MEDICAL HISTORY : Hypertension. SURGICAL HISTORY : None. ENCOUNTER: Initial ACUITY: 1 day PAIN SCALE: 0/10 LOCATION: cranial TECHNIQUE: Multiple contiguous axial images were obtained of the head. Using automated exposure control and adj ustment of the mA and/or kV according to patient size, radiation dose was kept as low as reasonably a chievable to obtain optimal diagnostic quality images. FINDINGS: CEREBRUM: The ventricles are prominent, appropriate for age and similar to November 2016. No evidence of midlin e shift, mass lesion, hemorrhage or acute infarction. No extra-axial fluid collections are seen. POSTERIOR FOSSA: The cerebellum and brainstem are intact. The 4th ventricle is midline. The cerebellopontine angle i s unremarkable. EXTRACRANIAL: The visualized portion of the orbits is intact. SKULL: The calvaria is intact. No evidence of skull fracture. CONCLUSION: Age-appropriate atrophy. No acute findings. Mane Plunkett MD on January 22, 2017 at 6:16 Board Certified Radiologist. This report was verified electronically.
[2017-01-22] MEDS ORDERED: POTASSIUM CHLORIDE 20 MEQ CONTROLLED RELEASE TAB PO ONE (06:30)
--- NOTE | 2017-01-22 06:31 | RADHPO ---
EXAM DATE/TIME: 01/22/2017 05:34 [facility] COMPARISON: CHEST SINGLE AP, June 04, 2014, 6:41. INDICATIONS : Weakness, syncopal episode today MEDICAL HISTORY : Hypertension. SURGICAL HISTORY : None. ENCOUNTER: Initial ACUITY: 1 day PAIN SCORE: Non-responsive. LOCATION: Bilateral chest FINDINGS: A single view of the chest demonstrates the lungs to be symmetrically aerated without evidence of mas s, infiltrate or effusion. The cardiomediastinal contours are unremarkable. Osseous structures are intact. CONCLUSION: The lungs are clear. Mane Plunkett MD on January 22, 2017 at 6:29 Board Certified Radiologist. This report was verified electronically.
[2017-01-22] MEDS ORDERED: SODIUM CHLORIDE 0.9% FLUSH 5 ML FLUSH FLUSH PRN (07:00)
[2017-01-22] MEDS ORDERED: ONDANSETRON HCL 4 MG/2 ML VIAL IVP PRN (07:00)
[2017-01-22] MEDS ORDERED: BISACODYL 10 MG SUPP PR PRN (07:00)
[2017-01-22] MEDS ORDERED: ACETAMINOPHEN 325 MG TAB PO PRN ×2 (07:00→16:45)
[2017-01-22 07:05] LABS: BLOOD, URINE LARGE (NEG); GLUCOSE,URINE NEG (NEG); KETONE, URINE NEG (NEG); NITRITE,URINE NEG (NEG); PH, URINE 6.5 (5.0-8.5)
[2017-01-22 07:10] LABS: METHOD OF COLLECTION CLEAN CATCH; URINE COLOR YELLOW (YELLW/STRAW)
[2017-01-22 07:11] LABS: BACTERIA, URINE MANY /hpf; COMMENT (UR) CULTURE INDICATED; CULTURE IF INDICATED CULTURE INDICATED
[2017-01-22] MEDS: SODIUM CHLOR 0.9% 1000 ML INJ 1,000 ML IV SCH ×2 (08:10→20:38)
[2017-01-22] MEDS: SODIUM CHLORIDE 0.9% FLUSH 5 ML FLUSH FLUSH SCH ×2 (09:00→20:38)
[2017-01-22] MEDS ORDERED: SODIUM CHLORIDE 0.9% FLUSH 5 ML FLUSH IVF SCH (09:00)
--- NOTE | 2017-01-22 16:57 | HHI.HP ---
damaso HPI Service [facility] Hospitalists Primary Care Physician Felix Hansen MD Admission Diagnosis near/syncope; UTI; hyponatremia Diagnoses: Chief Complaint: Cough Fatigue Sore throat N/V Travel History International Travel<30 Days: No Contact w/Intl Traveler <30 Da: No Traveled to Known Affected Are: No History of Present Illness This is a 81-year-old female who is very active with a past medical history significant for hypertension, dyslipidemia, osteoarthritis, hypothyroidism, vertigo and memory disturbance/dementia who presents to [facility] ED with complaints of generalized weakness, sore throat and cough 2 days. ED note indicates that patient was recently seen by her PCP and diagnosed with a urinary tract infection on 01/21 and started on Ciprofloxacin although patient denies. Per their note, she has taken a one-time dose of the antibiotic. Patient denies any urinary complaints including any hematuria, dysuria, urgency or frequency. Also ED note states patient is currently undergoing dementia workup by her neurologist Dr. Zelaya. Patient reports her symptoms started yesterday with a sore throat and cough without sputum production. Patient denies any complaints of fever or chills, vision changes, headache, palpitations, slurred speech, chest pain, shortness of breath or swelling in legs and feet. She denies any change in her appetite and states that she's been eating and drinking her normal amount. She denies any muscle aches or pains outside of her normal arthritic problems for which she takes 4 grams of methylprednisolone daily. She denies any abdominal pain, constipation, diarrhea or black/bloody/tarry stools. She does report a single episode of nonbloody vomitus prior to admission. In the ED, chest x-ray is unremarkable. CBC was unremarkable. Chemistry panel was significant for low sodium of 129 and potassium 3.1. She tested positive for flu A antigen. UA revealed large blood small leukocytes and many bacteria, culture indicated. Review of Systems Constitutional: COMPLAINS OF: Fatigue, DENIES: Diaphoretic episodes, Fever, Chills Endocrine: DENIES: Polydipsia, Polyuria, Polyphagia Eyes: DENIES: Blurred vision, Double Vision Ears, nose, mouth, throat: COMPLAINS OF: Throat pain (2 days), DENIES: Nasal discharge, Hoarseness, Ear Pain, Running Nose, Odynophagia Respiratory: COMPLAINS OF: Cough (2 days with scant sputum production), DENIES: Wheezing, Hemoptysis, Shortness of breath Cardiovascular: DENIES: Chest pain, Palpitations, Dyspnea on Exertion, Lower Extremity Edema Gastrointestinal: COMPLAINS OF: Nausea, Vomiting (single episode of nonbloody vomitus prior to admission), DENIES: Abdominal pain, Black stools, Bloody stools, Diarrhea, Difficulty Swallowing Genitourinary: DENIES: Hematuria, Dysuria Musculoskeletal: DENIES: Muscle aches, Joint Swelling, Back pain, Neck pain Integumentary: DENIES: Pruritus, Rash Hematologic/lymphatic: DENIES: Lymphadenopathy Immunologic/allergic: DENIES: Urticaria Neurologic: DENIES: Headache, Localized weakness, Paresthesias, Seizures Psychiatric: COMPLAINS OF: Confusion, DENIES: Anxiety, Mood changes, Depression Memory disturbance/dementia Past Family Social History Past Medical History Hypertension Dyslipidemia Hypothyroidism Memory disturbance/dementia Recent handsaw injury to right hand Osteoarthritis GERD Vertigo Past Surgical History Bilateral total knee replacements Bilateral carpal tunnel release Bilateral cataract surgery Reported Medications Cipro (Ciprofloxacin HCl) 250 Mg Tab 250 Mg PO BID Flonase Nasal [place] (Fluticasone Nasal [place]) 50 Mcg/Act [place] 50 Mcg EACH NARE BID Methylprednisolone 4 Mg Tab 4 Mg PO DAILY Omeprazole 20 Mg Tab 20 Mg PO DAILY Meclizine (Meclizine HCl) 25 Mg Chew 25 Mg CHEW DAILY Lisinopril-Hctz 10-12.5 Mg Tab 1 Tab PO DAILY Levothyroxine (Levothyroxine Sodium) 50 Mcg Tab 75 Mcg PO DAILY Simvastatin 40 Mg Tab 40 Mg PO HS Allergies: Coded Allergies: Tetracyclines (Verified Allergy, Severe, 01/22/17) Active Ordered Medications Current Medications Medications (Trade) Dose Ordered Sig/Le[place]on Route Start Time Stop Time Status Last Admin (NS 1000 ml Inj) 1,000 ml @ 100 mls/hr Q10H IV 01/22/17 06:54 01/22/17 08:10 (NS Flush) 2 ml UNSCH PRN FLUSH 01/22/17 07:00 (NS Flush) 2 ml BID FLUSH 01/22/17 09:00 (Zofran Inj) 4 mg Q6H PRN IVP 01/22/17 07:00 (Dulcolax Supp) 10 mg DAILY PRN [place] 01/22/17 07:00 (Tylenol) 650 mg Q6H PRN PO 01/22/17 07:00 Family History Mother, breast cancer Coronary artery disease Social History She has a history of remote tobacco use, quit at the age 34. She reports the occasional glass of wine 1-2x/month. She denies any illicit drug use Physical Exam Vital Signs Vital Signs Date Time Temp Pulse Resp B/P Pulse Ox O2 Delivery O2 Flow Rate FiO2 01/22/17 12:00 97.0 59 18 118/53 97 01/22/17 11:58 98 21 01/22/17 11:55 59 01/22/17 09:50 58 18 140/61 98 Room Air 01/22/17 07:45 66 16 146/59 96 Room Air 01/22/17 06:18 59 132/56 98 Room Air 01/22/17 05:23 94 Room Air 01/22/17 05:15 60 20 94 01/22/17 05:11 99.7 60 20 162/72 94 Physical Exam GENERAL: This is a well-nourished, well-developed patient, in no apparent distress. A&Ox3. SKIN: No rashes, ecchymoses or lesions. Warm and dry. HEAD: Atraumatic. Normocephalic. No temporal or scalp tenderness. EYES: Pupils equal round and reactive. Extraocular motions intact. No scleral icterus. No injection or drainage. ENT: Nose without bleeding, purulent drainage or septal hematoma. Throat without erythema, tonsillar hypertrophy or exudate. Uvula midline. Airway patent. NECK: Trachea midline. No JVD or lymphadenopathy. Supple, nontender, no meningeal signs. CARDIOVASCULAR: Regular rate and rhythm without murmurs, gallops, or rubs. RESPIRATORY: Clear to auscultation. Breath sounds equal bilaterally. No wheezes , rales, or rhonchi. GASTROINTESTINAL: Abdomen soft, non-tender, nondistended. No hepato-splenomegaly , or palpable masses. No guarding. MUSCULOSKELETAL: Extremities without clubbing, cyanosis, or edema. No joint tenderness, effusion, or edema noted. No calf tenderness. NEUROLOGICAL: Awake and alert. Cranial nerves II through XII intact. Motor and sensory grossly within normal limits. Five out of 5 muscle strength in all muscle groups. Normal speech. Laboratory Laboratory Tests Test 01/22/17 01/22/17 05:30 06:50 White Blood Count 6.5 Red Blood Count 3.73 Hemoglobin 11.6 Hematocrit 34.5 Mean Corpuscular Volume 92.4 Mean Corpuscular Hemoglobin 31.1 Mean Corpuscular Hemoglobin 33.7 Concent Red Cell Distribution Width 12.4 Platelet Count 198 Mean Platelet Volume 8.4 Neutrophils (%) (Auto) 79.4 Lymphocytes (%) (Auto) 9.3 Monocytes (%) (Auto) 11.0 Eosinophils (%) (Auto) 0.0 Basophils (%) (Auto) 0.3 Neutrophils # (Auto) 5.2 Lymphocytes # (Auto) 0.6 Monocytes # (Auto) 0.7 Eosinophils # (Auto) 0.0 Basophils # (Auto) 0.0 CBC Comment DIFF FINAL Differential Comment Prothrombin Time 11.1 Prothromb Time International 1.0 Ratio Activated Partial 25.3 Thromboplast Time Sodium Level 129 Potassium Level 3.1 Chloride Level 90 Carbon Dioxide Level 29.5 Anion Gap 10 Blood Urea Nitrogen 13 Creatinine 0.79 Estimat Glomerular Filtration 70 Rate Random Glucose 109 Lactic Acid Level 1.1 Calcium Level 8.0 Magnesium Level 1.8 Total Bilirubin 0.4 Aspartate Amino Transf 28 (AST/SGOT) Alanine Aminotransferase 20 (ALT/SGPT) Alkaline Phosphatase 47 Total Creatine Kinase 95 Troponin I LESS THAN 0.02 Total Protein 6.7 Albumin 3.2 Thyroid Stimulating Hormone 0.679 3rd Gen Urine Collection Type CLEAN CATCH Urine Color YELLOW Urine Turbidity MOD Urine pH 6.5 Urine Specific [place] 1.012 Urine Protein NEG Urine Glucose (UA) NEG Urine Ketones NEG Urine Occult Blood LARGE Urine Nitrite NEG Urine Bilirubin NEG Urine Leukocyte Esterase SMALL Urine RBC 25-49 Urine WBC 20-24 Urine Squamous Epithelial 6-8 Cells Urine Transitional Epithelial 6-8 Cells Urine Bacteria MANY Urine Yeast with Hyphae Microscopic Urinalysis Comment CULTURE INDICATED Urine Collection Time 06:50 Date/Time Procedure Status Source Growth 01/22/17 06:50 Urine Culture Received Urine Clean Catch Pending 01/22/17 05:50 Influenza Types A,B Antigen (KULWINDER) - Final Complete Nasal Washing Positive For Flu A Antigen 01/22/17 05:35 Aerobic Blood Culture Received Blood Peripheral Pending 01/22/17 05:35 Anaerobic Blood Culture Received Blood Peripheral Pending Result Diagram: 01/22/1752901/22/17529 Imaging Last [address] 01/22/17511 Signed Impressions: Service Date/Time: Sunday, January 22, 2017 05:35 - CONCLUSION: Age- appropriate atrophy. No acute findings. Mane Plunkett MD Chest X-Ray 01/22/17511 Signed Impressions: Service Date/Time: Sunday, January 22, 2017 05:34 - CONCLUSION: The lungs are clear. Mane Plunkett MD Assessment and Plan Assessment and Plan 81-year-old female who is very active with a past medical history significant for hypertension, dyslipidemia, osteoarthritis, hypothyroidism, vertigo and memory disturbance/dementia who presents to [facility] ED with complaints of generalized weakness, sore throat and cough 2 days. Influenza - Admit to observation - Begin Tamiflu 75 mg by mouth twice a day - Supportive measures Possible urinary tract infection - UA suggestive of UTI but patient asymptomatic - Will treat empirically with abx and await urine culture results Hypertension - Resume patient's home lisinopril/hydrochlorothiazide - Good blood pressure control at present - Continue to monitor and adjust treatment as indicated Hypokalemia - By mouth repletion - Repeat labs in a.m. to monitor response Hyponatremia - likely due to volume depletion - IV fluid resuscitation - Repeat lab in a.m. Complaints of weakness - Related to active infection - PT eval/treatment Hypothyroidism - Resume home levothyroxine dose - TSH level within normal limits Vertigo - Meclizine when necessary GERD - Resume home PPI DVT prophylaxis - SCD/RAFAEL mckeone Discussed with Dr. Arthur Attending Statement \ Quyen Su Jan 22, 2017 16:57 Kiarra Arthur MD Jan 23, 2017 10:12
[2017-01-22] MEDS ORDERED: MENTHOL LOZENGE SUCK-ON PRN (17:00)
[2017-01-22] MEDS ORDERED: PHENOL 1.4% SOLN 180 ML BTL MT PRN (18:00)
[2017-01-22] MEDS ORDERED: OSELTAMIVIR PHOSPHATE 75 MG CAP PO ONE (18:00)
--- NOTE | 2017-01-22 19:16 | EKG ---
Date Performed: 01/22/2017 Time Performed: 05:21:00 PTAGE: 81 years EKG: Sinus bradycardia Normal ECG except for rate PREVIOUS TRACING : 11/24/2016 13.28 Compared to prior tracing no significant change DOCTOR: Jeremias Cherry Interpretating Date/Time 01/22/2017 19:14:30
[2017-01-22] MEDS: FLUTICASONE PROPIONATE 50 MCG/ACT 16 GM NASAL SPRAY EACH NARE SCH (20:38)
[2017-01-22] MEDS ORDERED: PRAVASTATIN SOD 80 MG TAB PO SCH (21:00)
[2017-01-22] MEDS ORDERED: MECLIZINE HCL 25 MG TAB PO PRN (22:00)
[2017-01-23 00:41] VITALS: BP 163/70; PULSE 63; RESP 18; TEMP 98.7; O2SAT 96
[2017-01-23 04:00] VITALS: BP 125/76; PULSE 61; RESP 16; TEMP 98.1; O2SAT 97
[2017-01-23] MEDS ORDERED: cefTRIAXone INJ 1,000 MG in SODIUM CHLORIDE 0.9% INJ 100 ML IV SCH (06:00)
[2017-01-23] MEDS ORDERED: LEVOTHYROXINE SODIUM 75 MCG TAB PO SCH (06:00)
[2017-01-23 07:14] LABS: AUTOMATED NEUTROPHIL # 3.1 TH/MM3 (1.8-7.7); BASOPHIL % 0.2 % (0.0-2.0); EOSINOPHIL % 0.4 % (0.0-4.0); HEMO FLAGS DIFF FINAL; LYMPH % 20.3 % (9.0-44.0); LYMPHOCYTE # 0.9 TH/MM3 (1.0-4.8); MEAN CORPUSCULAR HEMOGLOBIN 31.2 PG (27.0-34.0); MEAN CORPUSCULAR HGB CONC 33.6 % (32.0-36.0); MONO % 10.9 % (0.0-8.0); NEUT % 68.2 % (16.0-70.0); PLATELET COUNT 175 TH/MM3 (150-450); RED BLOOD COUNT 3.65 MIL/MM3 (4.00-5.30); RED CELL DISTRIBUTION WIDTH 12.6 % (11.6-17.2); WHITE BLOOD COUNT 4.5 TH/MM3 (4.0-11.0)
[2017-01-23 07:45] LABS: ALKALINE PHOSPHATASE 46 U/L (45-117); ALT (GPT) 20 U/L (10-53); ANION GAP 8 MEQ/L (5-15); AST (GOT) 20 U/L (15-37); BICARBONATE 28.4 MEQ/L (21.0-32.0); BLOOD UREA NITROGEN 12 MG/DL (7-18); CHLORIDE 103 MEQ/L (98-107); GLOMERULAR FILTRATION RATE 90 ML/MIN (>89); MAGNESIUM 1.6 MG/DL (1.5-2.5); POTASSIUM 3.5 MEQ/L (3.5-5.1); SODIUM (NA) 139 MEQ/L (136-145); TOTAL BILIRUBIN ADULT 0.3 MG/DL (0.2-1.0)
[2017-01-23 08:00] VITALS: BP 179/111; PULSE 65; RESP 20; TEMP 98; O2SAT 96
[2017-01-23] MEDS: FLUTICASONE PROPIONATE 50 MCG/ACT 16 GM NASAL SPRAY EACH NARE SCH (08:23)
[2017-01-23] MEDS: SODIUM CHLORIDE 0.9% FLUSH 5 ML FLUSH FLUSH SCH (08:23)
[2017-01-23] MEDS: SODIUM CHLOR 0.9% 1000 ML INJ 1,000 ML IV SCH (08:28)
[2017-01-23] MEDS ORDERED: NON-FORMULARY DRUG (Lisinopril-Hctz 1 TAB) PO SCH (09:00)
[2017-01-23] MEDS ORDERED: PANTOPRAZOLE SOD 20 MG DELAYED RELEASE TAB PO SCH (09:00)
[2017-01-23] MEDS ORDERED: HYDROCHLOROTHIAZIDE 12.5 MG CAP PO SCH (09:00)
[2017-01-23] MEDS ORDERED: OSELTAMIVIR PHOSPHATE 75 MG CAP PO SCH (09:00)
[2017-01-23] MEDS ORDERED: LISINOPRIL 10 MG TAB PO SCH (09:00)
[2017-01-23] MEDS ORDERED: methylPREDNISolone 4 MG TAB PO SCH (09:00)
--- NOTE | 2017-01-23 09:22 | HHI.PR ---
Subjective Remarks Patient feels much better today. She reports less cough and near resolution of sore throat. She denies any complaints of nausea/vomiting, abdominal pain, chest pain or shortness of breath. No fever. In fact, her only complaint is that she doesn't have a syrup for her pancakes which she mentions multiple times during our visit this morning. Objective Vitals Vital Signs Date Time Temp Pulse Resp B/P Pulse Ox O2 Delivery O2 Flow Rate FiO2 01/23/17 04:00 98.1 61 16 125/76 97 01/23/17 00:41 98.7 63 18 163/70 96 01/22/17 20:35 97 21 01/22/17 20:00 98.0 63 18 121/59 97 01/22/17 20:00 67 01/22/17 16:00 98.2 60 18 162/98 97 01/22/17 12:00 97.0 59 18 118/53 97 01/22/17 11:58 98 21 01/22/17 11:55 59 01/22/17 09:50 58 18 140/61 98 Room Air I/O 01/22/17 01/22/17 01/22/17 01/23/17 01/23/17 01/23/17 07:00 15:00 23:00 07:00 15:00 23:00 Intake Total 1100 ml 1667 ml 558 ml Balance 1100 ml 1667 ml 558 ml Intake Oral 480 ml IV Total 1100 ml 1187 ml 558 ml # Voids 2 5 1 # Bowel Movements 1 Result Diagram: 01/23/17 0657 01/23/17 0657 Imaging Last [address] 01/22/17511 Signed Impressions: Service Date/Time: Sunday, January 22, 2017 05:35 - CONCLUSION: Age- appropriate atrophy. No acute findings. Mane Plunkett MD Chest X-Ray 01/22/17511 Signed Impressions: Service Date/Time: Sunday, January 22, 2017 05:34 - CONCLUSION: The lungs are clear. Mane Plunkett MD Objective Remarks GENERAL: This is a well-nourished, well-developed patient, in no apparent distress. A&Ox3. Patient is sitting up on side of the bed eating breakfast. SKIN: Warm and dry. HEAD: Atraumatic. Normocephalic. No temporal or scalp tenderness. EYES: Pupils equal round and reactive. Extraocular motions intact. No scleral icterus. No injection or drainage. ENT: MMM CARDIOVASCULAR: Regular rate and rhythm without murmurs, gallops, or rubs. RESPIRATORY: Clear to auscultation. Breath sounds equal bilaterally. No wheezes , rales, or rhonchi. GASTROINTESTINAL: Abdomen soft, non-tender, nondistended. No hepato-splenomegaly , or palpable masses. No guarding. MUSCULOSKELETAL: Extremities without clubbing, cyanosis, or edema. No joint tenderness, effusion, or edema noted. No calf tenderness. NEUROLOGICAL: Awake and alert. Cranial nerves II through XII intact. Motor and sensory grossly within normal limits. Five out of 5 muscle strength in all muscle groups. Normal speech. Medications and IVs Current Medications Medications (Trade) Dose Ordered Sig/[place]on Route Start Time Stop Time Status Last Admin (NS 1000 ml Inj) 1,000 ml @ 75 mls/hr [id number] IV 01/22/17 06:54 01/23/17 08:28 (NS Flush) 2 ml UNSCH PRN FLUSH 01/22/17 07:00 (NS Flush) 2 ml BID FLUSH 01/22/17 09:00 (Zofran Inj) 4 mg Q6H PRN IVP 01/22/17 07:00 (Dulcolax Supp) 10 mg DAILY PRN [place] 01/22/17 07:00 (Tylenol) 650 mg Q6H PRN PO 01/22/17 07:00 (Chloraseptic [place]) 2 spray Q2HR PRN [place] 01/22/17 18:00 01/22/17 17:56 ([place] Sundeep) 1 lozenge Q1HR PRN SUCK-ON 01/22/17 17:00 (Tylenol) 650 mg Q4H PRN PO 01/22/17 16:45 Oseltamivir Phosphate 75 mg 75 mg BID PO 01/23/17 09:00 01/23/17 08:25 (Rocephin Inj/NS Inj) 100 ml @ 200 mls/hr Q24H IV 01/23/17 06:00 01/23/17 06:35 (Flonase [place] Spr) 2 spray BID EACH NARE 01/22/17 21:00 01/23/17 08:23 (Synthroid) 75 mcg DAILY@06 PO 01/23/17 06:00 01/23/17 06:35 (Medrol) 4 mg DAILY PO 01/23/17 09:00 01/23/17 08:24 (Protonix) 20 mg DAILY PO 01/23/17 09:00 01/23/17 08:25 (Pravachol) 80 mg HS PO 01/22/17 21:00 01/22/17 20:38 (Antivert) 25 mg Q8HR PRN PO 01/22/17 22:00 (Prinivil) 10 mg DAILY PO 01/23/17 09:00 01/23/17 08:23 (Microzide) 12.5 mg DAILY PO 01/23/17 09:00 01/23/17 08:24 A/P Assessment and Plan 81-year-old female who is very active with a past medical history significant for hypertension, dyslipidemia, osteoarthritis, hypothyroidism, vertigo and memory disturbance/dementia who presents to [facility] ED with complaints of generalized weakness, sore throat and cough 2 days. Influenza - Patient much improved with less cough and decreased sore throat - Continue with Tamiflu 75 mg by mouth twice a day - Supportive measures - DC IV fluids, patient is eating and drinking well Possible urinary tract infection - UA suggestive of UTI but patient asymptomatic - Will treat empirically with abx and await urine culture results Hypertension - good control at present - Continue patient's home lisinopril/hydrochlorothiazide - Good blood pressure control at present - Continue to monitor and adjust treatment as indicated Hypokalemia - resolved Hyponatremia - resolved Complaints of weakness - Related to active infection - PT eval/treatment Hypothyroidism - Continue home levothyroxine dose - TSH level within normal limits Vertigo - Meclizine when necessary GERD - Continue home PPI DVT prophylaxis - SCD/RAFAEL lindae Written by Quyen Su, acting as scribe for Dr. Arthur on 01/23/17 at 10:04. Discharge Planning Discharge patient to home Condition on discharge: Improved Heart healthy Diet as tolerated Ad Estelita activity Rx written: Tamiflu, Chloraseptic spray. Please resume previously prescribed Cipro. Follow-up with primary care physician in 7-10 days Attending Statement The exam, history, and the medical decision-making described in the above note were completed with my assistance as the dictating practitioner. I attest that I had a [id number] encounter with the patient on the same day, and personally performed all of the history, exam, or medical decision making. I reviewed and agree with the plan. Patient seen in room ambulatory without complaints and is greatly improved. No new events overnight. Her story status is better. Discharge plans discussed at length with patient as well as follow-up planning. Quyen Su Jan 23, 2017 09:22 Kiarra Arthur MD Jan 23, 2017 10:14
[2017-01-23] MEDS ORDERED: OSEL75 PO (09:59)
--- NOTE | 2017-01-23 10:02 | HHI.DCPOC ---
Discharge Care Plan Diagnosis: (1) Hypomagnesemia (2) Hypokalemia (3) Hyponatremia (4) UTI (urinary tract infection) (5) Nausea and vomiting (6) Influenza A Goals to Promote Your Health * To prevent worsening of your condition and complications * To maintain your health at the optimal level Directions to Meet Your Goals Take your medications as prescribed Follow your dietary instruction Follow activity as directed Keep your appointments as scheduled Take your immunizations and boosters as scheduled If your symptoms worsen call your PCP, if no PCP go to Urgent Care Center or Emergency Room Smoking is Dangerous to Your Health. Avoid second hand smoke Call the 24-hour hour crisis hotline for domestic abuse at Quyen Su Jan 23, 2017 10:01 Kiarra Arthur MD Jan 23, 2017 11:21
[2017-01-23] MEDS ORDERED: PHEN1.4%S MT (10:06)
[2017-01-23] MEDS ORDERED: MAGNESIUM OXIDE 400 MG TAB PO ONE (10:15)
== END 2017-01-23 12:35 | disposition home or self-care (01) ==
LOC: PHED 04:44 → PHEDA 06:57 → PH3A 09:55
PROVIDERS: ADMIT Hospitalist; ATTEND Hospitalist
DX: J11.1 Influenza due to unidentified influenza virus with other respiratory manifestations (principal); I10 Essential (primary) hypertension; E78.5 Hyperlipidemia, unspecified; M19.90 Unspecified osteoarthritis, unspecified site; E03.9 Hypothyroidism, unspecified; F03.90 Unspecified dementia, unspecified severity, without behavioral disturbance, psychotic disturbance, mood disturbance, and anxiety; K21.9 Gastro-esophageal reflux disease without esophagitis; E87.6 Hypokalemia; E87.1 Hypo-osmolality and hyponatremia; R42 Dizziness and giddiness; E78.00 Pure hypercholesterolemia, unspecified; Z96.653 Presence of artificial knee joint, bilateral; Z88.1 Allergy status to other antibiotic agents; Z87.891 Personal history of nicotine dependence
CPT/HCPCS: 70450; 71010; 80053; 81001; 82550; 83605; 83735; 84443; 84484; 85025; 85610; 85730; 87040; 87086; 87804; 93005; 96361; 96365; 99291; G0378; J0696; J7030; J7509

== ENCOUNTER 2017-09-23 17:46 | Inpatient (IN) | payer OTHER, MEDICARE ==
[~2017-09-23] VITALS: Ht 147.3 cm; Wt 58.3 kg
[~2017-09-23 17:46] MED LIST changes: -ACET325T PO; -CEPH-460 PO; +CIPR250T52 PO; +FLUT1SPR5 EACH NARE; +METH4TAB6 PO; +OMEP20TA93 PO; +OSEL75 PO; -PERC5TAB12 PO; +PHEN1.4%S MT
[2017-09-23 17:52] VITALS: BP 118/57; PULSE 110; RESP 16; TEMP 102.5; O2SAT 93
--- NOTE | 2017-09-23 18:06 | PD ---
HPI Chief Complaint: Complaint Time Seen by Provider: 18:05 Travel History International Travel<30 days: No Contact w/Intl Traveler<30days: No Traveled to known affect area: No History of Present Illness HPI 81-year-old female came to the emergency room with history of fever, confusion, dysuria and decreased urination. Patient had a temperature of 102.5. Seems like the symptoms have been progressively worsening over past couple days. Patient is little bit confused and the daughter who is giving the main history. However daughter says that she does not live with her and hence does not know the exact time of onset of all the symptoms. As per the daughter patient has been having progressive worsening of confusion over past 1-2 years. She is getting worked up for dementia and so far all the tests have been negative. However this event with the fever is new. Daughter is convinced she has a UTI and possibly a sepsis. Patient is complaining of some right flank pain. No history of nausea vomiting. No history of diarrhea or cough. She is otherwise a relatively healthy person. COUNT INCLUDES THE [facility] Past Medical History Narrative Medical List of her past medical, surgical, social and family history is reviewed from the nursing note. Arthritis: Yes Cancer: No Cardiovascular Problems: No High Cholesterol: Yes Diminished Hearing: No Gastrointestinal Disorders: No GERD: Yes Genitourinary: No Hypertension: Yes Immune Disorder: No Implanted Vascular Access Dvce: Yes Musculoskeletal: Yes Neurologic: No Psychiatric: No Reproductive: No Respiratory: No Thyroid Disease: Yes (HYPO) ?: Not Past Surgical History Eye Surgery: Yes (saeid cataract sx) Joint Replacement: Yes (BILATERAL knee replaced) Other Surgery: Yes (Saeid carpal tunnel) Social History Alcohol Use: Yes (wine, occasionally) Tobacco Use: No (quit 1960s) Substance Use: No Allergies-Medications (Allergen,Severity, Reaction): Coded Allergies: doxycycline (Unverified Allergy, Severe, 09/23/17) minocycline (Unverified Allergy, Severe, 09/23/17) tigecycline (Unverified Allergy, Severe, 09/23/17) nitrofurantoin (Verified Allergy, Unknown, 09/24/17) Comments List of her allergies reviewed from the nursing note. Reported Meds & Prescriptions Reported Meds & Active Scripts Active Reported Medrol (Methylprednisolone) 4 Mg Tab 4 Mg PO DAILY Meclizine (Meclizine HCl) 25 Mg Tab 25 Mg PO DIRECTED PRN Aspirin 81 Mg Chew 81 Mg CHEW DAILY Flonase Nasal [place] (Fluticasone Nasal [place]) 50 Mcg/Act [place] 50 Mcg EACH NARE BID Lisinopril-Hctz 10-12.5 Mg Tab 1 Tab PO DAILY Levothyroxine (Levothyroxine Sodium) 50 Mcg Tab 75 Mcg PO DAILY Simvastatin 40 Mg Tab 40 Mg PO HS Narrative Medication List of her home medications reviewed from the nursing note. Review of Systems Except as stated in HPI: all other systems reviewed are Neg General / Constitutional: Positive: Fever Genitourinary: Positive: Flank Pain Neurologic: Positive: Change in Mentation Physical Exam Narrative GENERAL: Awake, but slightly confused, moderate distress SKIN: Focused skin assessment warm/dry. Left periorbital ecchymosis secondary to a biopsy HEAD: Atraumatic. Normocephalic. EYES: Pupils equal and round. No scleral icterus. No injection or drainage. ENT: No nasal bleeding or discharge. Mucous membranes pink and moist. NECK: Trachea midline. No JVD. CARDIOVASCULAR: Regular rate and rhythm. No murmur appreciated. RESPIRATORY: No accessory muscle use. Clear to auscultation. Breath sounds equal bilaterally. GASTROINTESTINAL: Abdomen soft, non-tender, nondistended. Hepatic and splenic margins not palpable. Right flank tenderness MUSCULOSKELETAL: No obvious deformities. No clubbing. No cyanosis. No edema. NEUROLOGICAL: Awake and alert. No obvious cranial nerve deficits. Motor grossly within normal limits. Normal speech. PSYCHIATRIC: Appropriate mood and affect; insight and judgment normal. Data Data Last Documented VS Vital Signs Date Time Temp Pulse Resp B/P (MAP) Pulse Ox O2 Delivery O2 Flow Rate FiO2 09/23/17 19:12 98 09/23/17 19:00 102 18 09/23/17 19:00 108/64 (79) Room Air 09/23/17 17:52 102.5 Orders Orders Complete Blood Count With Diff (09/23/17 18:19) Comprehensive Metabolic Panel (09/23/17 18:19) Lactic Acid Sepsis Protocol (09/23/17 18:19) Urinalysis - C+S If Indicated (09/23/17 18:19) Influenzae A/B Antigen (09/23/17 18:19) Blood Culture (09/23/17 18:19) Chest, Single Ap (09/23/17 18:19) Blood Glucose (09/23/17 18:19) Ecg Monitoring (09/23/17 18:19) Iv Access Insert/Monitor (09/23/17 18:19) Oximetry (09/23/17 18:19) Oxygen Administration (09/23/17 18:19) Acetaminophen (Tylenol) (09/23/17 18:30) Sodium Chlor 0.9% 1000 Ml Inj (Ns 1000 M (09/23/17 18:19) Sodium Chlor 0.9% 1000 Ml Inj (Ns 1000 M (09/23/17 18:19) Piperacil-Tazo 4.5 Gm Premix (Zosyn 4.5 (09/23/17 19:15) Vancomycin Inj (Vancomycin Inj) (09/23/17 19:15) ^ Straight Catheter (09/23/17 19:06) Ct Abd/Pel W/O Iv Contrast (09/23/17 ) Admit Order (Ed Use Only) (09/23/17 19:17) Labs Laboratory Tests Test 09/23/17 18:33 09/23/17 19:05 White Blood Count 15.7 TH/MM3 Red Blood Count 3.66 MIL/MM3 Hemoglobin 11.4 GM/DL Hematocrit 32.8 % Mean Corpuscular Volume 89.5 FL Mean Corpuscular Hemoglobin 31.1 PG Mean Corpuscular Hemoglobin Concent 34.8 % Red Cell Distribution Width 13.0 % Platelet Count 345 TH/MM3 Mean Platelet Volume 6.8 FL Neutrophils (%) (Auto) 90.8 % Lymphocytes (%) (Auto) 3.4 % Monocytes (%) (Auto) 5.3 % Eosinophils (%) (Auto) 0.0 % Basophils (%) (Auto) 0.5 % Neutrophils # (Auto) 14.3 TH/MM3 Lymphocytes # (Auto) 0.5 TH/MM3 Monocytes # (Auto) 0.8 TH/MM3 Eosinophils # (Auto) 0.0 TH/MM3 Basophils # (Auto) 0.1 TH/MM3 CBC Comment DIFF FINAL Differential Comment Blood Urea Nitrogen 23 MG/DL Creatinine 1.30 MG/DL Random Glucose 178 MG/DL Total Protein 7.3 GM/DL Albumin 3.1 GM/DL Calcium Level 8.5 MG/DL Alkaline Phosphatase 94 U/L Aspartate Amino Transf (AST/SGOT) 44 U/L Alanine Aminotransferase (ALT/SGPT) 42 U/L Total Bilirubin 0.4 MG/DL Sodium Level 130 MEQ/L Potassium Level 3.7 MEQ/L Chloride Level 96 MEQ/L Carbon Dioxide Level 25.8 MEQ/L Anion Gap 8 MEQ/L Estimat Glomerular Filtration Rate 40 ML/MIN Lactic Acid Level 2.2 mmol/L Urine Color YELLOW Urine Turbidity CLOUDY Urine pH 5.5 Urine Specific [place] 1.015 Urine Protein 100 mg/dL Urine Glucose (UA) NEG mg/dL Urine Ketones TRACE mg/dL Urine Occult Blood LARGE Urine Nitrite NEG Urine Bilirubin NEG Urine Leukocyte Esterase LARGE Urine RBC 10-14 /hpf Urine WBC 100-200 /hpf Urine Squamous Epithelial Cells 6-8 /hpf Urine Bacteria MANY /hpf Microscopic Urinalysis Comment CULTURE INDICATED MDM Medical Decision Making Medical Screen Exam Complete: Yes Emergency Medical Condition: Yes Medical Record Reviewed: Yes Differential Diagnosis Pyelonephritis, UTI, sepsis Narrative Course 7:23 PM blood test results of back and indicative of sepsis. Patient's white blood cell count is elevated with a significant left shift. Lactic acid is elevated. Patient also has renal insufficiency possibly from dehydration. I do not have a UA back yet. A straight catheter has been ordered. X-rays negative. Patient was given IV fluid and antibiotic as per sepsis protocol. I discussed the case with the hospitalist who has accepted the patient. I have ordered a CT scan of her abdomen and pelvis to rule out any infected stone. Critical Care Narrative Aggregate critical care time was 30 minutes. Time to perform other separately billable procedures was not included in the critical care time. My time did not include minutes spent treating any other patients simultaneously or on activities that did not directly contribute to the patient's treatment. The services I provided to this patient were to treat and/or prevent clinically significant deterioration that could result in: Sepsis, sepsis protocol I provided critical care services requiring my management, as noted below: Chart data review, documentation time, medication orders and management, vital sign assessments/reviewing monitor data, ordering and reviewing lab tests, ordering and interpreting/reviewing x-rays and diagnostic studies, care of the patient and discussion of the patient with the admitting physicians. Procedures EKG Prior to Arrival: No Diagnosis Primary Impression: Sepsis Qualified Codes: A41.9 - Sepsis, unspecified organism Additional Impressions: UTI (urinary tract infection) Qualified Codes: N39.0 - Urinary tract infection, site not specified Pyelonephritis Admitting Information Admitting Physician Requests: Admit Scripts Cefuroxime (Ceftin) 250 Mg Tab 250 MG PO BID for infection for 10 Days, #20 TAB Prov: Cm Arroyo 09/26/17 Sennosides (Senna-Lax) 8.6 Mg Tab 17.2 MG PO Q12H Y for CONSTIPATION, #10 TAB Prov: Cm Arroyo 09/26/17 Hydrocodone/Acetaminophen (Hydrocodone-Acetamin 5-325 mg) 5 Mg-325 Mg Tablet 1 TAB PO Q4H Y for PAIN SCALE 5 TO 10, #10 TAB Prov: Cm Arroyo 09/26/17 Suly Otoole MD Sep 23, 2017 18:05
[2017-09-23] MEDS ORDERED: SODIUM CHLOR 0.9% 1000 ML INJ 1,000 ML IV ONE (18:19)
[2017-09-23] MEDS ORDERED: SODIUM CHLOR 0.9% 1000 ML INJ 800 ML IV ONE (18:19)
[2017-09-23] MEDS ORDERED: MECL-62 PO (18:20)
[2017-09-23] MEDS ORDERED: ASPI-516 CHEW (18:20)
[2017-09-23] MEDS ORDERED: MEDR4TAB PO (18:20)
[2017-09-23] MEDS ORDERED: ACETAMINOPHEN 325 MG TAB PO ONE (18:30)
[2017-09-23 18:40] LABS: AUTOMATED NEUTROPHIL # 14.3 TH/MM3 (1.8-7.7); BASOPHIL # 0.1 TH/MM3 (0-0.2); BASOPHIL % 0.5 % (0.0-2.0); HEMATOCRIT 32.8 % (35.0-46.0); LYMPH % 3.4 % (9.0-44.0); LYMPHOCYTE # 0.5 TH/MM3 (1.0-4.8); MEAN CELL VOLUME 89.5 FL (80.0-100.0); MEAN CORPUSCULAR HEMOGLOBIN 31.1 PG (27.0-34.0); MEAN CORPUSCULAR HGB CONC 34.8 % (32.0-36.0); MONO % 5.3 % (0.0-8.0); NEUT % 90.8 % (16.0-70.0); PLATELET COUNT 345 TH/MM3 (150-450); RED BLOOD COUNT 3.66 MIL/MM3 (4.00-5.30); WHITE BLOOD COUNT 15.7 TH/MM3 (4.0-11.0)
[2017-09-23 18:43] LABS: HEMO FLAGS DIFF FINAL
--- NOTE | 2017-09-23 18:47 | RADRPT ---
EXAM DATE/TIME: 09/23/2017 18:34 [facility] COMPARISON: CHEST SINGLE AP, January 22, 2017, 5:34. INDICATIONS : Chest discomfort; fall wednesday. MEDICAL HISTORY : Hypertension. SURGICAL HISTORY : None. ENCOUNTER: Initial ACUITY: 4 - 6 days PAIN SCORE: 1/10 LOCATION: Bilateral chest FINDINGS: A single view of the chest demonstrates the lungs to be symmetrically aerated without evidence of mas s, infiltrate or effusion. A tiny calcified granuloma within the right upper lobe. The cardiomediasti nal contours are unremarkable. Osseous structures are intact. CONCLUSION: No acute disease. Mane Orr Jr., MD on September 23, 2017 at 18:46 Board Certified Radiologist. This report was verified electronically.
[2017-09-23 18:49] LABS: CHLORIDE 96 MEQ/L (98-107); POTASSIUM 3.7 MEQ/L (3.5-5.1); SODIUM (NA) 130 MEQ/L (136-145)
[2017-09-23 18:53] LABS: ANION GAP 8 MEQ/L (5-15); BICARBONATE 25.8 MEQ/L (21.0-32.0); BLOOD UREA NITROGEN 23 MG/DL (7-18)
[2017-09-23 18:56] LABS: ALT (GPT) 42 U/L (10-53); AST (GOT) 44 U/L (15-37); GLOMERULAR FILTRATION RATE 40 ML/MIN (>89)
[2017-09-23 18:58] LABS: TOTAL BILIRUBIN ADULT 0.4 MG/DL (0.2-1.0)
[2017-09-23 18:59] LABS: ALKALINE PHOSPHATASE 94 U/L (45-117)
[2017-09-23 19:00] VITALS: BP 108/64; PULSE 88; RESP 18; O2SAT 97
[2017-09-23 19:12] VITALS: O2SAT 98
[2017-09-23] MEDS ORDERED: ACETAMINOPHEN 325 MG TAB PO PRN (19:15)
[2017-09-23] MEDS ORDERED: ACETAMINOPHEN/HYDROcodone 325 MG/5 MG TAB PO PRN (19:15)
[2017-09-23] MEDS ORDERED: LACTULOSE SYRUP 20 GM/30 ML CUP PO PRN (19:15)
[2017-09-23] MEDS ORDERED: ONDANSETRON HCL 4 MG/2 ML VIAL IVP PRN (19:15)
[2017-09-23] MEDS ORDERED: SODIUM CHLORIDE 0.9% FLUSH 10 ML FLUSH IV FLUSH PRN (19:15)
[2017-09-23] MEDS ORDERED: PIPERACIL-TAZO 4.5 GM PREMIX 100 ML IV ONE (19:15)
[2017-09-23] MEDS ORDERED: MAGNESIUM HYDROXIDE SUSP 30 ML CUP PO PRN (19:15)
[2017-09-23] MEDS ORDERED: VANCOMYCIN INJ 1,000 MG in SODIUM CHLOR 0.9% 250 ML INJ 250 ML IV ONE (19:15)
[2017-09-23] MEDS ORDERED: SENNOSIDES 8.6 MG TAB PO PRN (19:15)
[2017-09-23] MEDS ORDERED: BISACODYL 10 MG SUPP RECTAL PRN (19:15)
--- NOTE | 2017-09-23 19:48 | RADRPT ---
EXAM DATE/TIME: 09/23/2017 19:20 [facility] COMPARISON: No previous studies available for comparison. INDICATIONS : General weakness and fever. Patient states she also has a UTI. ORAL CONTRAST: No oral contrast ingested. RADIATION DOSE: 9.05 CTDIvol (mGy) MEDICAL HISTORY : Gastroesophageal reflux disease. Hypertension. SURGICAL HISTORY : None. ENCOUNTER: Initial ACUITY: 1 day PAIN SCALE: 0/10 LOCATION: Bilateral abdomen TECHNIQUE: Volumetric scanning of the abdomen and pelvis was performed. Using automated exposure control and ad justment of the mA and/or kV according to patient size, radiation dose was kept as low as reasonably achievable to obtain optimal diagnostic quality images. DICOM format image data is available electro nically for review and comparison. FINDINGS: LOWER LUNGS: The visualized lower lungs are clear. LIVER: Homogeneous density without lesion. There is no dilation of the biliary tree. No calcified gallston es. SPLEEN: Normal size without lesion. PANCREAS: Within normal limits. KIDNEYS: The left kidney is mildly edematous. There is stranding of the adjacent fat. No stones or hydronephro sis. Right kidney is unremarkable. ADRENAL GLANDS: Within normal limits. VASCULAR: There is no aortic aneurysm. BOWEL/MESENTERY: The stomach, small bowel, and colon demonstrate no acute abnormality. There is no free intraperitone al air or fluid. Scattered colonic diverticula without acute inflammation. ABDOMINAL WALL: Within normal limits. RETROPERITONEUM: There is no lymphadenopathy. BLADDER: No wall thickening or mass. REPRODUCTIVE: Within normal limits. INGUINAL: There is no lymphadenopathy or hernia. MUSCULOSKELETAL: There is a degenerative lumbar spine. CONCLUSION: 1. Findings suggesting acute pyelonephritis involving the left kidney. No hydronephrosis or stones. 2. Colonic diverticulosis without acute inflammation. Mane Orr Jr., MD on September 23, 2017 at 19:41 Board Certified Radiologist. This report was verified electronically.
[2017-09-23 19:59] LABS: BLOOD, URINE LARGE (NEG); GLUCOSE,URINE NEG (NEG); KETONE, URINE TRACE mg/dL (NEG); NITRITE,URINE NEG (NEG); PH, URINE 5.5 (5.0-8.5)
--- NOTE | 2017-09-23 20:01 | RADRPT ---
EXAM DATE/TIME: 09/23/2017 19:31 [facility] COMPARISON: CT BRAIN W/O CONTRAST, January 22, 2017, 5:35. INDICATIONS : Dizziness. RADIATION DOSE: 61.32 CTDIvol (mGy) MEDICAL HISTORY : Hypertension. Gastroesophageal reflux disease. SURGICAL HISTORY : None. ENCOUNTER: Initial ACUITY: 1 day PAIN SCALE: 0/10 LOCATION: cranial TECHNIQUE: Multiple contiguous axial images were obtained of the head. Using automated exposure control and adj ustment of the mA and/or kV according to patient size, radiation dose was kept as low as reasonably a chievable to obtain optimal diagnostic quality images. DICOM format image data is available electro nically for review and comparison. FINDINGS: CEREBRUM: The ventricles are normal for age. No evidence of midline shift, mass lesion, hemorrhage or acute in farction. No extra-axial fluid collections are seen. POSTERIOR FOSSA: The cerebellum and brainstem are intact. The 4th ventricle is midline. The cerebellopontine angle i s unremarkable. EXTRACRANIAL: The visualized portion of the orbits is intact. SKULL: The calvaria is intact. No evidence of skull fracture. CONCLUSION: No acute disease. Mane Orr Jr., MD on September 23, 2017 at 19:58 Board Certified Radiologist. This report was verified electronically.
[2017-09-23 20:05] LABS: BACTERIA, URINE MANY /hpf; COMMENT (UR) CULTURE INDICATED; CULTURE IF INDICATED CULTURE INDICATED; URINE COLOR YELLOW (YELLW/STRAW); WBC, URINE 100-200 /hpf (0-5)
[2017-09-23] MEDS: SODIUM CHLOR 0.9% 1000 ML INJ 1,000 ML IV SCH (20:28)
[2017-09-23 20:38] LABS: LACTIC ACID GHOST NOT REPORTABLE
[2017-09-23 20:45] VITALS: BP 110/61
[2017-09-23] MEDS: FLUTICASONE PROPIONATE 50 MCG/ACT 16 GM NASAL SPRAY EACH NARE SCH (21:00)
[2017-09-23 21:10] VITALS: BP 106/54; PULSE 70; RESP 20; TEMP 98; O2SAT 97
[2017-09-23 22:25] VITALS: PULSE 72
[2017-09-23] MEDS: SODIUM CHLORIDE 0.9% FLUSH 10 ML FLUSH IV FLUSH SCH (23:42)
[2017-09-23] MEDS: PRAVASTATIN SOD 80 MG TAB PO SCH (23:43)
[2017-09-23] MEDS: DOCUSATE SODIUM 50 MG/SENNA 8.6 MG TAB PO SCH (23:43)
[2017-09-24] MEDS ORDERED: TEMAZEPAM 7.5 MG CAP PO ONE (00:30)
[2017-09-24 04:00] VITALS: BP 120/89; PULSE 75; RESP 20; TEMP 98.3; O2SAT 97
[2017-09-24] MEDS: SODIUM CHLOR 0.9% 1000 ML INJ 1,000 ML IV SCH ×2 (05:15→09:18)
[2017-09-24] MEDS: LEVOTHYROXINE SODIUM 75 MCG TAB PO SCH (06:05)
[2017-09-24 06:50] LABS: AUTOMATED NEUTROPHIL # 13.9 TH/MM3 (1.8-7.7); BASOPHIL % 0.1 % (0.0-2.0); EOSINOPHIL % 0.1 % (0.0-4.0); HEMATOCRIT 27.7 % (35.0-46.0); LYMPHOCYTE # 0.8 TH/MM3 (1.0-4.8); MEAN CELL VOLUME 91.3 FL (80.0-100.0); MEAN CORPUSCULAR HEMOGLOBIN 31.4 PG (27.0-34.0); MEAN CORPUSCULAR HGB CONC 34.4 % (32.0-36.0); MONO % 6.5 % (0.0-8.0); NEUT % 88.3 % (16.0-70.0); PLATELET COUNT 272 TH/MM3 (150-450); RED BLOOD COUNT 3.04 MIL/MM3 (4.00-5.30); RED CELL DISTRIBUTION WIDTH 12.8 % (11.6-17.2); WHITE BLOOD COUNT 15.7 TH/MM3 (4.0-11.0)
[2017-09-24 06:53] LABS: HEMO FLAGS AUTO DIFF
[2017-09-24 07:21] LABS: ALKALINE PHOSPHATASE 88 U/L (45-117); ALT (GPT) 37 U/L (10-53); ANION GAP 12 MEQ/L (5-15); AST (GOT) 39 U/L (15-37); BICARBONATE 24.5 MEQ/L (21.0-32.0); BLOOD UREA NITROGEN 17 MG/DL (7-18); CHLORIDE 108 MEQ/L (98-107); GLOMERULAR FILTRATION RATE 62 ML/MIN (>89); POTASSIUM 3.1 MEQ/L (3.5-5.1); SODIUM (NA) 144 MEQ/L (136-145); TOTAL BILIRUBIN ADULT 0.5 MG/DL (0.2-1.0)
[2017-09-24 07:38] LABS: BANDS 12 % (0-6); DOHLE BODIES PRESENT (NONE SEEN); NEUTROPHIL # MANUAL DIFF 13.5 TH/MM3 (1.8-7.7); POLYS (SEG NEUTROPHILS) 74 % (16-70); TOXIC GRANULATION 1+ (NORMAL); WBC DIFF SAMPLE 100
[2017-09-24 07:39] LABS: PLATELET ESTIMATE SMEAR NORMAL (NORMAL); PLATELET MORPHOLOGY NORMAL (NORMAL); SCAN/DIFF FINAL DIFF MANUAL
[2017-09-24 08:00] VITALS: BP 110/73; PULSE 70; RESP 16; TEMP 97.4; O2SAT 98
[2017-09-24] MEDS: FLUTICASONE PROPIONATE 50 MCG/ACT 16 GM NASAL SPRAY EACH NARE SCH ×2 (09:16→21:00)
[2017-09-24] MEDS: ASPIRIN 81 MG CHEW TAB CHEW SCH (09:16)
[2017-09-24] MEDS: SODIUM CHLORIDE 0.9% FLUSH 10 ML FLUSH IV FLUSH SCH ×2 (09:16→19:42)
[2017-09-24] MEDS: DOCUSATE SODIUM 50 MG/SENNA 8.6 MG TAB PO SCH ×2 (09:17→19:42)
[2017-09-24] MEDS ORDERED: POTASSIUM CHLORIDE 20 MEQ CONTROLLED RELEASE TAB PO ONE (09:45)
[2017-09-24] MEDS: NS + KCL 20 MEQ INJ 1,000 ML IV SCH ×2 (11:31→22:25)
[2017-09-24 12:00] VITALS: BP 102/51; PULSE 96; RESP 18; TEMP 98.4; O2SAT 95
--- NOTE | 2017-09-24 13:36 | HHI.HP ---
[facility] Felix Hansen MD Admission Diagnosis sepsis Diagnoses: (1) Severe sepsis Diagnosis: Principal (2) Pyelonephritis Diagnosis: Principal (3) Leukocytosis Diagnosis: Principal (4) Bandemia Diagnosis: Principal (5) Acute renal failure superimposed on stage 2 chronic kidney disease Diagnosis: Principal Chief Complaint: Profound weakness, dysuria Travel History International Travel<30 Days: No Contact w/Intl Traveler <30 Da: No Traveled to Known Affected Are: No Sepsis Criteria SIRS Criteria (2 or more): Temp > 100.9 or < 96.8, Heart rate over 90, WBC > 63097, < 4000 or > 10% bands Sepsis Criteria (SIRS+source): Infect source susp/known Severe Sepsis (+one): Lactate >2 Criteria Outcome: Meets severe sepsis criteria History of Present Illness Written by Cm Arroyo, acting as scribe for Dr. Patel on 09/24/17 at 13:23. 81-year-old white female being admitted for sepsis. Patient with known history of hypertension, hyperlipidemia, hypothyroidism, gastroesophageal reflux, chronic vertigo presented to the hospital because of profound weakness, difficulty ambulating, increased confusion, chills, rigors. Patient states that she is in normal state of health until 2 days ago when she started having progressive weakness, increased confusion, chills, difficulty urinating with dysuria. Patient has had a recent fall and went to the chiropractor that day and since then she had progressive presentation of her symptoms. Got to the point where she could not ambulate yesterday so they brought her to the hospital for evaluation. Patient was found to have severe sepsis with pyelonephritis. Patient indicates that she started one month ago with urinary symptoms. Approximately a week ago she called her primary medical doctor's office to notify them of her dysuria and she was given some antibiotics which she took for 2 days and her symptoms improved. However 2 days ago her symptoms did recur. Patient is feeling much better today after receiving IV antibiotics. She is no longer febrile. Renal function is improving. Review of Systems Constitutional: COMPLAINS OF: Chills Genitourinary: COMPLAINS OF: Dysuria Neurologic: COMPLAINS OF: Speech Problems, Poor Balance Except as stated in HPI: all other systems reviewed are Neg Past Family Social History Past Medical History Hypertension Hyperlipidemia Hypothyroidism Dementia Osteoarthritis Gastroesophageal reflux Vertigo Past Surgical History Bilateral knee replacements Bilateral carpal tunnel surgery Bilateral cataract surgery Reported Medications Reported Meds & Active Scripts Active Reported Medrol (Methylprednisolone) 4 Mg Tab 4 Mg PO DAILY Meclizine (Meclizine HCl) 25 Mg Tab 25 Mg PO DIRECTED PRN Aspirin 81 Mg Chew 81 Mg CHEW DAILY Flonase Nasal [place] (Fluticasone Nasal [place]) 50 Mcg/Act [place] 50 Mcg EACH NARE BID Lisinopril-Hctz 10-12.5 Mg Tab 1 Tab PO DAILY Levothyroxine (Levothyroxine Sodium) 50 Mcg Tab 75 Mcg PO DAILY Simvastatin 40 Mg Tab 40 Mg PO HS Allergies: Coded Allergies: doxycycline (Unverified Allergy, Severe, 09/23/17) minocycline (Unverified Allergy, Severe, 09/23/17) tigecycline (Unverified Allergy, Severe, 09/23/17) nitrofurantoin (Verified Allergy, Unknown, 09/24/17) Family History Reviewed is significant for both mother and grandmother with breast cancer Social History Patient quit smoking at age 34. Patient does use alcohol occasionally. Denies any illicit drugs Physical Exam Vital Signs Vital Signs Date Time Temp Pulse Resp B/P (MAP) Pulse Ox O2 Delivery O2 Flow Rate FiO2 09/24/17 12:00 98.4 96 18 102/51 (68) 95 09/24/17 08:00 97.4 70 16 110/73 (85) 98 09/24/17 04:00 98.3 75 20 120/89 (99) 97 09/23/17 22:25 72 09/23/17 21:10 98.0 70 20 106/54 (71) 97 09/23/17 20:45 73 18 110/61 (77) 97 09/23/17 19:12 98 09/23/17 19:00 102 18 09/23/17 19:00 88 18 108/64 (79) 97 Room Air 09/23/17 17:52 102.5 110 16 118/57 (77) 93 Physical Exam GENERAL: Well-developed, well-nourished, in no acute distress. alert and orientated HEENT: Head is normocephalic without any lesions or masses noted. Facial features are symmetric. Eyes: Extraocular muscles are intact. Conjunctivae were clear. Oropharyngeal: Pharynx without any erythema edema. Tongue is midline without deviation. Buccal mucosa is moist without any masses or lesions NECK: No JVD, no bruits are appreciated CARDIAC: Regular rhythm, regular rate. S1/S2 are heard. 2/6 ejection murmur, no gallops or rubs. LUNGS: Clear to auscultation bilaterally. No wheeze, rhonchi or rales. No use of accessory muscles on inspiration or expiration. ABDOMEN: Soft, nontender. Nondistended. Bowel sounds heard in all 4 quadrants. No organomegaly or masses. Negative rebound, negative guarding. Bilateral CVA tenderness to palpation MSK: Grossly intact 5 out of 5 muscle strength in proximal upper and lower extremities bilaterally with adequate range of motion EXTREMITIES: No edema, pulses are equal bilaterally. No cyanosis or clubbing NEUROLOGY: No cranial nerve deficits that are obvious, no slurred speech, no facial droop, no unilateral proptosis, tongue in midline Psychiatry: Mood and affect appear appropriate. Laboratory Laboratory Tests Test 09/23/17 18:33 09/23/17 19:05 09/23/17 21:50 09/24/17 06:00 White Blood Count 15.7 15.7 Red Blood Count 3.66 3.04 Hemoglobin 11.4 9.5 Hematocrit 32.8 27.7 Mean Corpuscular Volume 89.5 91.3 Mean Corpuscular Hemoglobin 31.1 31.4 Mean Corpuscular Hemoglobin Concent 34.8 34.4 Red Cell Distribution Width 13.0 12.8 Platelet Count 345 272 Mean Platelet Volume 6.8 7.1 Neutrophils (%) (Auto) 90.8 88.3 Lymphocytes (%) (Auto) 3.4 5.0 Monocytes (%) (Auto) 5.3 6.5 Eosinophils (%) (Auto) 0.0 0.1 Basophils (%) (Auto) 0.5 0.1 Neutrophils # (Auto) 14.3 13.9 Lymphocytes # (Auto) 0.5 0.8 Monocytes # (Auto) 0.8 1.0 Eosinophils # (Auto) 0.0 0.0 Basophils # (Auto) 0.1 0.0 CBC Comment DIFF FINAL AUTO DIFF Differential Comment FINAL DIFF MANUAL Blood Urea Nitrogen 23 17 Creatinine 1.30 0.88 Random Glucose 178 116 Total Protein 7.3 5.6 Albumin 3.1 2.3 Calcium Level 8.5 7.7 Alkaline Phosphatase 94 88 Aspartate Amino Transf (AST/SGOT) 44 39 Alanine Aminotransferase (ALT/SGPT) 42 37 Total Bilirubin 0.4 0.5 Sodium Level 130 144 Potassium Level 3.7 3.1 Chloride Level 96 108 Carbon Dioxide Level 25.8 24.5 Anion Gap 8 12 Estimat Glomerular Filtration Rate 40 62 Lactic Acid Level 2.2 0.7 Urine Color YELLOW Urine Turbidity CLOUDY Urine pH 5.5 Urine Specific [place] 1.015 Urine Protein 100 Urine Glucose (UA) NEG Urine Ketones TRACE Urine Occult Blood LARGE Urine Nitrite NEG Urine Bilirubin NEG Urine Leukocyte Esterase LARGE Urine RBC 10-14 Urine WBC 100-200 Urine Squamous Epithelial Cells 6-8 Urine Bacteria MANY Microscopic Urinalysis Comment CULTURE INDICATED Differential Total Cells Counted 100 Neutrophils % (Manual) 74 Band Neutrophils % 12 Lymphocytes % 9 Monocytes % 5 Neutrophils # (Manual) 13.5 Toxic Granulation 1+ Dohle Bodies PRESENT Platelet Estimate NORMAL Platelet Morphology Comment NORMAL Red Cell Morphology Comment NORMAL Date/Time Source Procedure Growth Status 09/23/17 18:33 Blood Peripheral Aerobic Blood Culture - Preliminary NO GROWTH IN 1 DAY Resulted 09/23/17 18:33 Blood Peripheral Anaerobic Blood Culture - Preliminary NO GROWTH IN 1 DAY Resulted 09/23/17 19:50 Nasal Aspirate Influenza Types A,B Antigen (KULWINDER) - Final NEGATIVE FOR FLU A AND B ANTIGEN.... Complete 09/23/17 19:05 Urine Clean Catch Urine Culture - Preliminary Gram Negative Christian Resulted Result Diagram: 09/24/17 0600 09/24/17 0600 Imaging Last Impressions Chest X-Ray 09/23/179 Signed Impressions: Service Date/Time: September 18:34 - CONCLUSION: No acute disease. Mane Orr Jr., MD Head CT 09/23/17 0000 Signed Impressions: Service Date/Time: September 19:31 - CONCLUSION: No acute disease. Mane Orr Jr., MD Abdomen/Pelvis CT 09/23/17 0000 Signed Impressions: Service Date/Time: September 19:20 - CONCLUSION: 1. Findings suggesting acute pyelonephritis involving the left kidney. No hydronephrosis or stones. 2. Colonic diverticulosis without acute inflammation. Mane Orr Jr., MD Septic Shock Reassessment Heart: Regular rate and rhythm Lungs: Clear Skin: Warm, [place] Peripheral Pulses: Bounding Right Radial Bounding Left Radial Capillary Refill: Brisk, <2 seconds Caprini VTE Risk Assessment Caprini VTE Risk Assessment: Mod/High Risk (score >= 2) Caprini Risk Assessment Model Point Value = 1 Point Value = 2 Point Value = 3 Point Value = 5 Age 41-60 Minor surgery BMI > 25 kg/m2 Swollen legs Varicose veins or History of unexplained or recurrent spontaneous Oral contraceptives or hormone replacement Sepsis (< 1 month) Serious lung disease, including pneumonia (< 1 month) Abnormal pulmonary function Acute myocardial infarction Congestive heart failure (< 1 month) History of inflammatory bowel disease Medical patient at bed rest Age 61-74 Arthroscopic surgery Major open surgery (> 45 min) Laparoscopic surgery (> 45 min) Malignancy Confined to bed (> 72 hours) Immobilizing plaster cast Central venous access Age >= 75 History of VTE Family history of VTE Factor V Leiden Prothrombin [id number] Lupus anticoagulant Anticardiolipin antibodies Elevated serum homocysteine Heparin-induced thrombocytopenia Other congenital or acquired thrombophilia Stroke (< 1 month) Elective arthroplasty Hip, pelvis, or leg fracture Acute spinal cord injury (< 1 month) Prophylaxis Regimen Total Risk Factor Score Risk Level Prophylaxis Regimen 0-1 Low Early ambulation 2 Moderate Order ONE of the following: *Sequential Compression Device (SCD) *Heparin 5000 units SQ BID 3-4 Higher Order ONE of the following medications: *Heparin 5000 units SQ TID *Enoxaparin/Lovenox 40 mg SQ daily (WT < 150 kg, CrCl > 30 mL/min) *Enoxaparin/Lovenox 30 mg SQ daily (WT < 150 kg, CrCl > 10-29 mL/min) *Enoxaparin/Lovenox 30 mg SQ BID (WT < 150 kg, CrCl > 30 mL/min) AND/OR *Sequential Compression Device (SCD) 5 or more Highest Order ONE of the following medications: *Heparin 5000 units SQ TID (Preferred with Epidurals) *Enoxaparin/Lovenox 40 mg SQ daily (WT < 150 kg, CrCl > 30 mL/min) *Enoxaparin/Lovenox 30 mg SQ daily (WT < 150 kg, CrCl > 10-29 mL/min) *Enoxaparin/Lovenox 30 mg SQ BID (WT < 150 kg, CrCl > 30 mL/min) AND *Sequential Compression Device (SCD) Assessment and Plan Assessment and Plan Severe sepsis secondary to pyelonephritis - She presented with febrile illness, tachycardia, leukocytosis with bandemia, lactic acidosis; CT scan independently reviewed by Dr. Patel shows moderate constipation along with a possibly distended left renal capsule; chest x-ray also independently reviewed by Dr. Patel shows no acute findings suggestive of any infectious process. - Patient was given vancomycin and Zosyn in emergency department, continued on Rocephin. Would expand to continued zosyn if fevers recur overnight. - Blood cultures are negative for 1 day - Urine culture indicating gram-negative christian, continue monitor culture and adjust antibiotics accordingly - Negative influenza testing, chest x-ray unremarkable for any infection Acute renal failure superimposed on chronic kidney disease stage II - Likely secondary to pyelonephritis - Improving on IV fluids - Continue monitor renal function Electrolyte abnormalities, hyponatremia, hypokalemia - Continue monitor and replete as needed Toxic encephalopathy, profound weakness, difficulty ambulating, resolved - Likely secondary to severe sepsis - CT of the head does not indicate any acute abnormality or intracranial bleed History of hypertension - Blood pressure low at this time - Hold home blood pressure medication, resume when blood pressure improved Hypothyroidism - Continue replacement therapy DVT prevention - Lovenox This note was transcribed by saskia Arroyo. INoah, personally performed the history, physical exam, and medical decision making; and confirmed the accuracy of information in the transcribed note. Authenticated by Noah Patel on 09/24/17 at 4:07 PM. Orders entered by Danish Arroyo were at my discretion. Physician Certification 2 Midnight Certification Type: Admission for Inpatient Services Order for Inpatient Services The services are ordered in accordance with Medicare regulations or non- Medicare payer requirements, as applicable. In the case of services not specified as inpatient-only, they are appropriately provided as inpatient services in accordance with the 2-midnight benchmark. Estimated LOS (days): 2 2 days is the estimated time the patient will need to remain in the hospital, assuming treatment plan goals are met and no additional complications. Post-Hospital Plan: Not yet determined Cm Arroyo Sep 24, 2017 13:36 Noah Patel MD Sep 24, 2017 16:08
[2017-09-24 16:00] VITALS: BP 108/53; PULSE 70; RESP 20; TEMP 97.4; O2SAT 96
[2017-09-24] MEDS: PRAVASTATIN SOD 80 MG TAB PO SCH (19:41)
[2017-09-24] MEDS: cefTRIAXone INJ 1,000 MG in SODIUM CHLORIDE 0.9% INJ 100 ML IV SCH (19:42)
[2017-09-24 20:00] VITALS: PULSE 70
[2017-09-24 23:03] VITALS: BP 138/47; PULSE 67; RESP 20; TEMP 98.5; O2SAT 98
[2017-09-25] VITALS: BP 112/88; PULSE 78; RESP 16; TEMP 99.3; O2SAT 99
[2017-09-25] MEDS ORDERED: TEMAZEPAM 7.5 MG CAP PO ONE (01:00)
[2017-09-25 04:00] VITALS: BP 142/76; PULSE 68; RESP 18; TEMP 97.8; O2SAT 98
[2017-09-25] MEDS: LEVOTHYROXINE SODIUM 75 MCG TAB PO SCH (05:50)
[2017-09-25] MEDS: NS + KCL 20 MEQ INJ 1,000 ML IV SCH (05:51)
[2017-09-25 07:25] LABS: AUTOMATED NEUTROPHIL # 11.2 TH/MM3 (1.8-7.7); BASOPHIL % 0.2 % (0.0-2.0); EOSINOPHIL # 0.1 TH/MM3 (0-0.4); EOSINOPHIL % 0.5 % (0.0-4.0); HEMATOCRIT 25.3 % (35.0-46.0); LYMPH % 7.6 % (9.0-44.0); MEAN CELL VOLUME 91.2 FL (80.0-100.0); MEAN CORPUSCULAR HEMOGLOBIN 31.6 PG (27.0-34.0); MEAN CORPUSCULAR HGB CONC 34.6 % (32.0-36.0); MONO % 6.8 % (0.0-8.0); NEUT % 84.9 % (16.0-70.0); PLATELET COUNT 270 TH/MM3 (150-450); RED BLOOD COUNT 2.77 MIL/MM3 (4.00-5.30); RED CELL DISTRIBUTION WIDTH 13.2 % (11.6-17.2); WHITE BLOOD COUNT 13.2 TH/MM3 (4.0-11.0)
[2017-09-25 07:26] LABS: HEMO FLAGS DIFF FINAL
[2017-09-25 07:38] LABS: BICARBONATE 22.9 MEQ/L (21.0-32.0); MAGNESIUM 1.4 MG/DL (1.5-2.5)
[2017-09-25 08:00] VITALS: BP 179/67; PULSE 73; RESP 16; TEMP 98.9; O2SAT 100
[2017-09-25] MEDS: SODIUM CHLORIDE 0.9% FLUSH 10 ML FLUSH IV FLUSH SCH ×2 (09:00→21:52)
[2017-09-25] MEDS: DOCUSATE SODIUM 50 MG/SENNA 8.6 MG TAB PO SCH ×2 (09:10→21:53)
[2017-09-25] MEDS: ASPIRIN 81 MG CHEW TAB CHEW SCH (09:10)
[2017-09-25] MEDS ORDERED: HYDROCHLOROTHIAZIDE 25 MG TAB PO SCH (10:15)
[2017-09-25] MEDS ORDERED: MECLIZINE HCL 25 MG TAB PO PRN (10:30)
[2017-09-25] MEDS: LISINOPRIL 10 MG TAB PO SCH (10:56)
[2017-09-25] MEDS: FLUTICASONE PROPIONATE 50 MCG/ACT 16 GM NASAL SPRAY EACH NARE SCH ×2 (10:56→21:52)
[2017-09-25] MEDS: HYDROCHLOROTHIAZIDE 12.5 MG CAP PO SCH (11:00)
[2017-09-25 13:00] VITALS: BP 109/52; PULSE 60; RESP 18; TEMP 96.9; O2SAT 98
[2017-09-25] MEDS: ACETAMINOPHEN/HYDROcodone 325 MG/10 MG TAB PO PRN (13:20)
[2017-09-25 17:00] VITALS: BP 142/59; PULSE 60; RESP 16; TEMP 96.6; O2SAT 98
--- NOTE | 2017-09-25 18:01 | HHI.PR ---
Subjective Remarks Patient states she woke up and urinated over herself last night. Wants the IV fluids discontinued. Otherwise she states she feels much better since admission. Tolerating by mouth intake. Had a bout of nausea which has resolved. Nursing denies any deterioration since last night. Objective Vital Signs Date Time Temp Pulse Resp B/P (MAP) Pulse Ox O2 Delivery O2 Flow Rate FiO2 09/25/17 17:00 96.6 60 16 142/59 (86) 98 09/25/17 13:00 96.9 60 18 109/52 (71) 98 09/25/17 08:00 98.9 73 16 179/67 (104) 100 09/25/17 04:00 97.8 68 18 142/76 (98) 98 09/25/17 00:00 99.3 78 16 112/88 (96) 99 09/24/17 23:03 98.5 67 20 138/47 (77) 98 09/24/17 20:00 70 I/O 09/24/17 09/24/17 09/24/17 09/25/17 09/25/17 09/25/17 07:00 15:00 23:00 07:00 15:00 23:00 Intake Total 2206 ml 980 ml 224 ml 1400 ml 355 ml 720 ml Output Total 750 ml Balance 2206 ml 230 ml 224 ml 1400 ml 355 ml 720 ml Intake Oral 60 ml 625 ml 600 ml 720 ml IV Total 2146 ml 355 ml 224 ml 800 ml 355 ml Output Urine Total 750 ml # Voids 1 2 3 # Bowel Movements 0 1 1 2 Result Diagram: 09/25/17 0653 09/25/17 0653 Objective Remarks Clear lungs bilaterally, unlabored breathing, Abdomen is soft, nondistended nontender A/P Assessment and Plan Severe sepsis secondary to pyelonephritis - Afebrile since last night while on Rocephin alone, leukocytosis nearly resolved - Blood cultures are positive for gram-negative cocci, discussed with labs, ultimate result expected in a.m. - Urine cultures growing Escherichia coli - Continue Rocephin Acute renal failure superimposed on chronic kidney disease stage II - acute component resolved Electrolyte abnormalities, hyponatremia, hypokalemia - Continue monitor and replete as needed History of hypertension - Now becoming hypertensive, resuming home medications Hypothyroidism - Continue replacement therapy DVT prevention - Noah Gomez MD Sep 25, 2017 18:01
[2017-09-25 20:00] VITALS: BP 122/59; PULSE 62; RESP 16; TEMP 98.2; O2SAT 97
[2017-09-25] MEDS ORDERED: MAGNESIUM SULFATE 1 GM PREMIX 100 ML IV ONE (20:00)
[2017-09-25] MEDS: cefTRIAXone INJ 1,000 MG in SODIUM CHLORIDE 0.9% INJ 100 ML IV SCH (21:52)
[2017-09-25] MEDS: PRAVASTATIN SOD 80 MG TAB PO SCH (21:53)
[2017-09-26] VITALS: BP 144/65; PULSE 63; RESP 16; TEMP 98.3; O2SAT 98
[2017-09-26 04:00] VITALS: BP 140/67; PULSE 65; RESP 16; TEMP 98.5; O2SAT 95
[2017-09-26] MEDS: LEVOTHYROXINE SODIUM 75 MCG TAB PO SCH (05:46)
[2017-09-26 08:00] VITALS: BP 198/81; PULSE 63; RESP 14; TEMP 97.6; O2SAT 96
[2017-09-26] MEDS: DOCUSATE SODIUM 50 MG/SENNA 8.6 MG TAB PO SCH (08:26)
[2017-09-26] MEDS: LISINOPRIL 10 MG TAB PO SCH (08:27)
[2017-09-26] MEDS: HYDROCHLOROTHIAZIDE 12.5 MG CAP PO SCH (08:27)
[2017-09-26] MEDS: ASPIRIN 81 MG CHEW TAB CHEW SCH (08:28)
[2017-09-26] MEDS: SODIUM CHLORIDE 0.9% FLUSH 10 ML FLUSH IV FLUSH SCH (08:29)
[2017-09-26] MEDS: FLUTICASONE PROPIONATE 50 MCG/ACT 16 GM NASAL SPRAY EACH NARE SCH (08:29)
[2017-09-26] MEDS: ACETAMINOPHEN/HYDROcodone 325 MG/10 MG TAB PO PRN (11:11)
[2017-09-26] MEDS ORDERED: cefTRIAXone INJ 1,000 MG in SODIUM CHLORIDE 0.9% INJ 100 ML IV ONE (13:30)
[2017-09-26] MEDS ORDERED: SENN187 PO (13:47)
[2017-09-26] MEDS ORDERED: HYDR-3516 PO (13:47)
[2017-09-26] MEDS ORDERED: CEFU1TAB18 PO (13:47)
--- NOTE | 2017-09-26 14:11 | HHI.DS ---
Discharge Summary Admission Date Sep 23, 2017 at 19:17 Discharge Date: Sep 26, 2017 Admitting Diagnosis sepsis (1) Severe sepsis ICD Code: A41.9 - Sepsis, unspecified organism; R65.20 - Severe sepsis without septic shock Diagnosis: Principal (2) Pyelonephritis ICD Code: N12 - Tubulo-interstitial nephritis, not specified as acute or chronic Diagnosis: Principal Status: Acute (3) Leukocytosis ICD Code: D72.829 - Elevated white blood cell count, unspecified Diagnosis: Principal (4) Bandemia ICD Code: D72.825 - Bandemia Diagnosis: Principal (5) Acute renal failure superimposed on stage 2 chronic kidney disease ICD Code: N17.9 - Acute kidney failure, unspecified; N18.2 - Chronic kidney disease, stage 2 (mild) Diagnosis: Principal Procedures none Brief History - From Admission Written by Cm Arroyo, acting as scribe for Dr. Patel on 09/24/17 at 13:23. 81-year-old white female being admitted for sepsis. Patient with known history of hypertension, hyperlipidemia, hypothyroidism, gastroesophageal reflux, chronic vertigo presented to the hospital because of profound weakness, difficulty ambulating, increased confusion, chills, rigors. Patient states that she is in normal state of health until 2 days ago when she started having progressive weakness, increased confusion, chills, difficulty urinating with dysuria. Patient has had a recent fall and went to the chiropractor that day and since then she had progressive presentation of her symptoms. Got to the point where she could not ambulate yesterday so they brought her to the hospital for evaluation. Patient was found to have severe sepsis with pyelonephritis. Patient indicates that she started one month ago with urinary symptoms. Approximately a week ago she called her primary medical doctor's office to notify them of her dysuria and she was given some antibiotics which she took for 2 days and her symptoms improved. However 2 days ago her symptoms did recur. Patient is feeling much better today after receiving IV antibiotics. She is no longer febrile. Renal function is improving. CBC/BMP: 09/25/17 0653 09/25/17 0653 Significant Findings Laboratory Tests Test 09/23/17 18:33 09/23/17 19:05 09/23/17 21:50 09/24/17 06:00 White Blood Count 15.7 TH/MM3 (4.0-11.0) 15.7 TH/MM3 (4.0-11.0) Red Blood Count 3.66 MIL/MM3 (4.00-5.30) 3.04 MIL/MM3 (4.00-5.30) Hemoglobin 11.4 GM/DL (11.6-15.3) 9.5 GM/DL (11.6-15.3) Hematocrit 32.8 % (35.0-46.0) 27.7 % (35.0-46.0) Mean Platelet Volume 6.8 FL (7.0-11.0) Neutrophils (%) (Auto) 90.8 % (16.0-70.0) 88.3 % (16.0-70.0) Lymphocytes (%) (Auto) 3.4 % (9.0-44.0) 5.0 % (9.0-44.0) Neutrophils # (Auto) 14.3 TH/MM3 (1.8-7.7) 13.9 TH/MM3 (1.8-7.7) Lymphocytes # (Auto) 0.5 TH/MM3 (1.0-4.8) 0.8 TH/MM3 (1.0-4.8) Blood Urea Nitrogen 23 MG/DL (7-18) Creatinine 1.30 MG/DL (0.50-1.00) Random Glucose 178 MG/DL (74-106) 116 MG/DL (74-106) Albumin 3.1 GM/DL (3.4-5.0) 2.3 GM/DL (3.4-5.0) Aspartate Amino Transf (AST/SGOT) 44 U/L (15-37) 39 U/L (15-37) Sodium Level 130 MEQ/L (136-145) Chloride Level 96 MEQ/L (98-107) 108 MEQ/L (98-107) Estimat Glomerular Filtration Rate 40 ML/MIN (>89) 62 ML/MIN (>89) Lactic Acid Level 2.2 mmol/L (0.4-2.0) Urine Turbidity CLOUDY (CLEAR) Urine Protein 100 mg/dL (NEG-TRACE) Urine Ketones TRACE mg/dL (NEG) Urine Occult Blood LARGE (NEG) Urine Leukocyte Esterase LARGE (NEG) Urine RBC 10-14 /hpf (0-3) Urine WBC 100-200 /hpf (0-5) Urine Squamous Epithelial Cells 6-8 /hpf (0-5) Urine Bacteria MANY /hpf (NONE) Monocytes # (Auto) 1.0 TH/MM3 (0-0.9) Neutrophils % (Manual) 74 % (16-70) Band Neutrophils % 12 % (0-6) Neutrophils # (Manual) 13.5 TH/MM3 (1.8-7.7) Toxic Granulation 1+ (NORMAL) Dohle Bodies PRESENT (NONE SEEN) Total Protein 5.6 GM/DL (6.4-8.2) Calcium Level 7.7 MG/DL (8.5-10.1) Potassium Level 3.1 MEQ/L (3.5-5.1) Test 09/25/17 06:53 White Blood Count 13.2 TH/MM3 (4.0-11.0) Red Blood Count 2.77 MIL/MM3 (4.00-5.30) Hemoglobin 8.8 GM/DL (11.6-15.3) Hematocrit 25.3 % (35.0-46.0) Neutrophils (%) (Auto) 84.9 % (16.0-70.0) Lymphocytes (%) (Auto) 7.6 % (9.0-44.0) Neutrophils # (Auto) 11.2 TH/MM3 (1.8-7.7) Calcium Level 7.5 MG/DL (8.5-10.1) Magnesium Level 1.4 MG/DL (1.5-2.5) Chloride Level 108 MEQ/L (98-107) PE at Discharge Awake, alert, sitting up in chair Has minimal right flank tenderness which is improved since admission Hospital Course Patient was admitted started on IV fluids and antibiotics. She was coded to have pyelonephritis. Patient's fevers resolved and her leukocytosis had stabilized. Her initial urine and blood cultures grew out well responding Escherichia coli. Repeat blood cultures ordered per infectious disease but otherwise the patient was cleared for discharge from their standpoint if she was clinically improved and had good outpatient follow-up. The patient confirm she had good outpatient follow-up. She was tolerating by mouth intake well with significantly improved pain. Patient has met maximal benefit from hospitalization and is clinically stable for discharge. Patient was instructed to have her primary care physician look into her follow-up blood cultures and also to request those results from the hospital. Pt Condition on Discharge: Stable Discharge Disposition: Discharge Home Discharge Time: <= 30 minutes Discharge Instructions DIET: Follow Instructions for: Heart Healthy Diet Activities you can perform: Regular-No Restrictions Activities to Avoid: Driving for 24 hrs Follow up Referrals: PCP Follow-up - 1 Week New Medications: Cefuroxime (Ceftin) 250 Mg Tab 250 MG PO BID for infection for 10 Days, #20 TAB Hydrocodone/Acetaminophen (Hydrocodone-Acetamin 5-325 mg) 5 Mg-325 Mg Tablet 1 TAB PO Q4H PRN for PAIN SCALE 5 TO 10, #10 TAB Sennosides (Senna-Lax) 8.6 Mg Tab 17.2 MG PO Q12H PRN for CONSTIPATION, #10 TAB Continued Medications: Aspirin (Aspirin) 81 Mg Chew 81 MG CHEW DAILY, TAB 0 Refills Fluticasone Nasal [place] (Flonase Nasal [place]) 50 Mcg/Act [place] 50 MCG EACH NARE BID for Allergies, #1 BOTTLE 0 Refills Levothyroxine (Levothyroxine) 50 Mcg Tab 75 MCG PO DAILY for Thyroid, #30 TAB 0 Refills Lisinopril-Hctz (Lisinopril-Hctz) 10-12.5 Mg Tab 1 TAB PO DAILY for Blood Pressure Management, #30 TAB 0 Refills Meclizine (Meclizine) 25 Mg Tab 25 MG PO DIRECTED PRN for VERTIGO, TAB 0 Refills Methylprednisolone (Medrol) 4 Mg Tab 4 MG PO DAILY, TAB 0 Refills Simvastatin (Simvastatin) 40 Mg Tab 40 MG PO HS for Cholesterol Management, #30 TAB 0 Refills Noah Patel MD Sep 26, 2017 14:11
== END 2017-09-26 14:57 | disposition home or self-care (01) | DRG 871 ==
LOC: PHED 17:46 → PHEDA 19:17 → PH3A 21:02
PROVIDERS: ADMIT Hospitalist; ATTEND Hospitalist
DX: A41.51 Sepsis due to Escherichia coli [E. coli] (principal); G93.49 Other encephalopathy; N17.9 Acute kidney failure, unspecified; E87.2 Acidosis; E87.1 Hypo-osmolality and hyponatremia; N12 Tubulo-interstitial nephritis, not specified as acute or chronic; R65.20 Severe sepsis without septic shock; F03.90 Unspecified dementia, unspecified severity, without behavioral disturbance, psychotic disturbance, mood disturbance, and anxiety; M19.90 Unspecified osteoarthritis, unspecified site; K21.9 Gastro-esophageal reflux disease without esophagitis; I12.9 Hypertensive chronic kidney disease with stage 1 through stage 4 chronic kidney disease, or unspecified chronic kidney disease; E03.9 Hypothyroidism, unspecified; Z96.653 Presence of artificial knee joint, bilateral; N18.2 Chronic kidney disease, stage 2 (mild); E78.5 Hyperlipidemia, unspecified; R00.0 Tachycardia, unspecified; E87.6 Hypokalemia; K59.00 Constipation, unspecified; B96.20 Unspecified Escherichia coli [E. coli] as the cause of diseases classified elsewhere; Z87.891 Personal history of nicotine dependence
CPT/HCPCS: 70450; 71010; 74176; 80048; 80053; 81001; 83605; 83735; 85007; 85025; 85027; 87040; 87077; 87086; 87186; 87205; 87804; J0696; J2405; J2543; J3370; J3475; J3480; J7030; J7050; P9612